=== PATIENT | male | born 1945 | race Caucasian/White ===

== ENCOUNTER → 2017-08-17 07:17 | Outpatient (CLI) | payer OTHER, SELFPAY ==
[2017-08-17 07:45] LABS: Bacteria Urine None Seen; WBC Urine None Seen (0-5/HPF)
[2017-08-17 09:05] LABS: Add Manual Diff / Slide Review NO; Basophils Percent Auto 0.7 % (0-2); Eosinophils Percent Auto 1.1 % (2-4); Hematocrit 41.9 % (41-53); Hemoglobin 14.4 g/dL (13.5-17.5); Lymphocytes Percent Auto 28.1 % (25-40); Mean Corpuscular HGB Conc 34.3 % (30-36); Mean Corpuscular Hemoglobin 31.5 PG (26-34); Mean Corpuscular Volume 91.7 fL (80-100); Monocytes Percent Auto 4.9 % (3-14); Neutrophils Absolute Auto 4900 /uL (3000-5900); Neutrophils Percent Auto 65.2 % (50-75); Platelet Count 156 X10^3/uL (150-400); Red Blood Cell Count 4.57 X10^6/uL (4.5-5.9); Red Cell Distribution Width 12.2 % (11.6-14.8); White Blood Cell Count 7.5 X10^3/uL (4.5-11.0)
[2017-08-17 10:04] LABS: Thyroid Stimulating Hormone 1.37 uIU/mL (0.47-4.68)
[2017-08-17 10:18] LABS: Appearance Urine UA CLEAR; Bilirubin Urine UA NEGATIVE (NEGATIVE); Color Urine UA YELLOW; Glucose Urine UA NEGATIVE (Normal); Ketones Urine UA NEGATIVE (NEGATIVE); Leukocyte Esterase Urine UA NEGATIVE (NEGATIVE); Nitrite Urine UA Negative (Negative); Occult Blood Urine UA 2+ (Negative); Protein Urine UA NEGATIVE (Negative); Specific Gravity Urine UA 1.025 (1.000-1.035); Urobilinogen Urine UA 0.2 E.U./dL (0.2)
[2017-08-17 10:38] LABS: Amorphous Sediment Urine 1+; Culture Indicated Urine Cult Not Indicated; RBC Urine 0-1/HPF (0-5/HPF)
[2017-08-17 11:55] LABS: Alanine Aminotransferase 31 IU/L (21-72); Albumin 4.2 g/dL (3.5-5.0); Alkaline Phosphatase 41 U/L (38-126); Aspartate Aminotransferase 22 IU/L (17-59); Bilirubin Total 2.2 mg/dL (0.2-1.3); Blood Urea Nitrogen 18 mg/dL (9-20); Calcium 9.3 mg/dL (8.4-10.2); Carbon Dioxide 28 mmol/L (22-32); Chloride 103 mmol/L (98-107); Cholesterol 126 mg/dL (140-199); Estimated Glomerular Filt Rate > 60.0 mL/min (>60); Globulin 2.1 g/dL (1.7-4.1); Glucose 103 mg/dL (80-110); HDL Cholesterol 60 mg/dL (40-60); HEMOLYSIS < 15 (0-50); LDL Cholesterol Calculated 46 mg/dL (<100); Sodium 142 mmol/L (137-145); Total Protein 6.3 g/dL (6.3-8.2); Triglycerides 98 mg/dL (35-150)
[2017-08-17 12:27] LABS: Prostate Specific Antigen < 0.064 ng/mL (0.10-4.00)
== END ==
PROVIDERS: Family Provider Family Medicine; PCP Family Medicine; Visit Provider Family Medicine
DX: I10 Essential (primary) hypertension (principal); E78.2 Mixed hyperlipidemia
CPT/HCPCS: 36415; 80053; 80061; 81001; 84153; 84443; 85025

== ENCOUNTER → 2018-02-03 07:43 | Outpatient (CLI) | payer OTHER, SELFPAY ==
[2018-02-03 09:21] LABS: Alanine Aminotransferase 24 IU/L (21-72); Albumin 4.5 g/dL (3.5-5.0); Albumin Globulin Ratio 1.9 (1.0-2.8); Alkaline Phosphatase 42 U/L (38-126); Aspartate Aminotransferase 22 IU/L (17-59); Blood Urea Nitrogen 19 mg/dL (9-20); Calcium 9.4 mg/dL (8.4-10.2); Carbon Dioxide 27 mmol/L (22-32); Chloride 104 mmol/L (98-107); Cholesterol 155 mg/dL (140-199); Estimated Glomerular Filt Rate > 60.0 mL/min (>60); Globulin 2.4 g/dL (1.7-4.1); Glucose 102 mg/dL (80-110); HDL Cholesterol 57 mg/dL (40-60); HEMOLYSIS < 15 (0-50); LDL Cholesterol Calculated 62 mg/dL (<100); Sodium 143 mmol/L (137-145); Total Protein 6.9 g/dL (6.3-8.2); Triglycerides 178 mg/dL (35-150)
== END ==
PROVIDERS: Family Provider Family Medicine; PCP Family Medicine; Visit Provider Family Medicine
DX: E78.5 Hyperlipidemia, unspecified (principal); I10 Essential (primary) hypertension
CPT/HCPCS: 36415; 80053; 80061

== ENCOUNTER → 2018-04-12 10:19 | Outpatient (CLI) | payer OTHER, SELFPAY ==
[2018-04-12 12:14] LABS: Prostate Specific Antigen 0.094 ng/mL (0.10-4.00)
== END ==
PROVIDERS: Family Provider Family Medicine; PCP Family Medicine; Visit Provider Urology
DX: Z85.46 Personal history of malignant neoplasm of prostate (principal)
CPT/HCPCS: 36415; 84153

== ENCOUNTER → 2018-04-21 10:30 | Outpatient (CLI) | payer OTHER, SELFPAY ==
[2018-04-21 11:54] LABS: Add Manual Diff / Slide Review NO; Basophils Absolute Auto 0 /uL (0-100); Basophils Percent Auto 0.5 % (0-2); Eosinophils Absolute Auto 100 /uL (0-450); Eosinophils Percent Auto 0.8 % (2-4); Hematocrit 43.1 % (41-53); Hemoglobin 14.6 g/dL (13.5-17.5); Lymphocytes Absolute Auto 1600 /uL (1100-4500); Lymphocytes Percent Auto 21.8 % (25-40); Mean Corpuscular HGB Conc 33.9 % (30-36); Mean Corpuscular Hemoglobin 31.3 PG (26-34); Mean Corpuscular Volume 92.3 fL (80-100); Monocytes Absolute Auto 400 /uL (0-900); Monocytes Percent Auto 4.9 % (3-14); Neutrophils Absolute Auto 5200 /uL (1500-7000); Platelet Count 180 X10^3/uL (150-400); Red Blood Cell Count 4.67 X10^6/uL (4.5-5.9); Red Cell Distribution Width 12.3 % (11.6-14.8); White Blood Cell Count 7.2 X10^3/uL (4.5-11.0)
[2018-04-21 12:45] LABS: Alanine Aminotransferase 29 IU/L (21-72); Albumin 4.8 g/dL (3.5-5.0); Albumin Globulin Ratio 1.8 (1.0-2.8); Alkaline Phosphatase 46 U/L (38-126); Aspartate Aminotransferase 24 IU/L (17-59); BUN Creatinine Ratio 15.6 (6-22); Bilirubin Total 2.7 mg/dL (0.2-1.3); Blood Urea Nitrogen 14 mg/dL (9-20); Calcium 9.6 mg/dL (8.4-10.2); Carbon Dioxide 24 mmol/L (22-32); Chloride 103 mmol/L (98-107); Estimated Glomerular Filt Rate > 60.0 mL/min (>60); Globulin 2.6 g/dL (1.7-4.1); Glucose 105 mg/dL (80-110); HEMOLYSIS < 15 (0-50); Potassium 4.2 mmol/L (3.4-5.1); Sodium 140 mmol/L (137-145); Total Protein 7.4 g/dL (6.3-8.2)
[2018-04-21 13:51] LABS: Folate 13.5 ng/mL (2.76-20.0); Vitamin B12 389 pg/mL (239-931)
[2018-04-25 22:12] LABS: Albumin 4.4 g/dL (3.8-4.8); Alpha 1 Globulin 0.3 g/dL (0.2-0.3); Alpha 2 Globulin 0.7 g/dL (0.5-0.9); Beta 1 Globulin 0.4 g/dL (0.4-0.6); Gamma Globulin 0.6 g/dL (0.8-1.7); Protein, Total 6.8 g/dL (6.1-8.1)
== END ==
PROVIDERS: Family Provider Family Medicine; PCP Family Medicine; Visit Provider Psychiatry & Neurology Neurology
DX: R25.1 Tremor, unspecified (principal); G63 Polyneuropathy in diseases classified elsewhere; Z51.81 Encounter for therapeutic drug level monitoring
CPT/HCPCS: 36415; 80053; 82607; 82746; 84155; 84165; 84443; 85025

== ENCOUNTER 2018-05-19 11:40 | Outpatient (RCR) | payer OTHER, SELFPAY | END 2018-05-20 12:10 | LOC: PHYS 11:40 | PROVIDERS: Family Provider Family Medicine; PCP Family Medicine; Visit Provider Psychiatry & Neurology Neurology | DX: R27.0 Ataxia, unspecified (principal); G20 Parkinson's disease ==

== ENCOUNTER → 2018-08-18 06:55 | Outpatient (CLI) | payer OTHER, SELFPAY ==
[2018-08-18 07:47] LABS: Add Manual Diff / Slide Review NO; Basophils Absolute Auto 100 /uL (0-100); Basophils Percent Auto 0.8 % (0-2); Eosinophils Absolute Auto 100 /uL (0-450); Eosinophils Percent Auto 1.6 % (2-4); Hematocrit 43.1 % (41-53); Hemoglobin 14.9 g/dL (13.5-17.5); Lymphocytes Absolute Auto 2100 /uL (1100-4500); Lymphocytes Percent Auto 33.4 % (25-40); Mean Corpuscular HGB Conc 34.6 % (30-36); Mean Corpuscular Hemoglobin 31.1 PG (26-34); Mean Corpuscular Volume 89.9 fL (80-100); Monocytes Absolute Auto 300 /uL (0-900); Monocytes Percent Auto 5.1 % (3-14); Neutrophils Absolute Auto 3600 /uL (1500-7000); Neutrophils Percent Auto 59.1 % (50-75); Platelet Count 162 X10^3/uL (150-400); Red Blood Cell Count 4.79 X10^6/uL (4.5-5.9); Red Cell Distribution Width 12.5 % (11.6-14.8); White Blood Cell Count 6.1 X10^3/uL (4.5-11.0)
[2018-08-18 08:30] LABS: Alanine Aminotransferase 14 IU/L (21-72); Albumin 4.4 g/dL (3.5-5.0); Albumin Globulin Ratio 1.8 (1.0-2.8); Alkaline Phosphatase 48 U/L (38-126); Aspartate Aminotransferase 21 IU/L (17-59); Blood Urea Nitrogen 15 mg/dL (9-20); Calcium 9.7 mg/dL (8.4-10.2); Carbon Dioxide 29 mmol/L (22-32); Chloride 104 mmol/L (98-107); Cholesterol 134 mg/dL (140-199); Estimated Glomerular Filt Rate > 60.0 mL/min (>60); Globulin 2.4 g/dL (1.7-4.1); Glucose 100 mg/dL (80-110); HDL Cholesterol 56 mg/dL (40-60); HEMOLYSIS < 15 (0-50); LDL Cholesterol Calculated 56 mg/dL (<100); Potassium 4.9 mmol/L (3.4-5.1); Sodium 141 mmol/L (137-145); Total Protein 6.8 g/dL (6.3-8.2); Triglycerides 110 mg/dL (35-150)
[2018-08-18 09:01] LABS: Prostate Specific Antigen Scrn 0.097 ng/mL (0.1-4.0)
== END ==
PROVIDERS: Family Provider Psychiatry & Neurology Neurology; PCP Family Medicine; Visit Provider Family Medicine
DX: E78.5 Hyperlipidemia, unspecified (principal); I10 Essential (primary) hypertension; Z85.46 Personal history of malignant neoplasm of prostate; Z12.5 Encounter for screening for malignant neoplasm of prostate
CPT/HCPCS: 36415; 80053; 80061; 85025; G0103

== ENCOUNTER → 2018-09-19 07:21 | Outpatient (CLI) | payer OTHER, SELFPAY ==
[2018-09-19 09:27] LABS: HEMOLYSIS < 15 (0-50)
[2018-09-19 09:36] LABS: Alanine Aminotransferase 10 IU/L (21-72); Albumin 4.2 g/dL (3.5-5.0); Albumin Globulin Ratio 1.8 (1.0-2.8); Alkaline Phosphatase 43 U/L (38-126); Aspartate Aminotransferase 20 IU/L (17-59); Bilirubin Total 1.9 mg/dL (0.2-1.3); Blood Urea Nitrogen 15 mg/dL (9-20); Calcium 9.5 mg/dL (8.4-10.2); Carbon Dioxide 31 mmol/L (22-32); Chloride 102 mmol/L (98-107); Cholesterol 141 mg/dL (140-199); Estimated Glomerular Filt Rate > 60.0 mL/min (>60); Globulin 2.4 g/dL (1.7-4.1); Glucose 105 mg/dL (80-110); HDL Cholesterol 59 mg/dL (40-60); LDL Cholesterol Calculated 60 mg/dL (<100); Potassium 4.5 mmol/L (3.4-5.1); Sodium 138 mmol/L (137-145); Total Protein 6.6 g/dL (6.3-8.2); Triglycerides 108 mg/dL (35-150)
[2018-09-19 11:06] LABS: Folate 10.7 ng/mL (2.76-20.0); Vitamin B12 353 pg/mL (239-931)
== END ==
PROVIDERS: Family Provider Psychiatry & Neurology Neurology; PCP Family Medicine; Visit Provider Family Medicine
DX: R68.3 Clubbing of fingers (principal); I10 Essential (primary) hypertension; E78.5 Hyperlipidemia, unspecified
CPT/HCPCS: 36415; 80053; 80061; 82607; 82746

== ENCOUNTER 2018-10-09 10:27 | Emergency (ER) | payer OTHER, SELFPAY ==
[2018-10-09 10:34] VITALS: BP 137/70; PULSE 68; RESP 18; TEMP 36.6; O2SAT 98
[2018-10-09 10:42] VITALS: BP 112/65; BP 129/69; BP 99/61; PULSE 51; PULSE 52; PULSE 60
--- NOTE | 2018-10-09 11:04 | ED_ITS ---
HPI - Head Injury General Chief complaint: Head Injury Stated complaint: hit head Time Seen by Provider: 10/09/18 10:33 Source: patient Mode of arrival: ambulatory Limitations: no limitations History of Present Illness HPI Narrative: 73-year-old male here for evaluation of a fall and a head abrasion that he sustained approximately 48 hours ago. Patient is not on anticoagulation. He does have a history of Parkinson's disease. He has been taking his medications. He stated that on Tuesday he went from a semi reclined position to standing when he stated that he felt lightheaded and then when he started to walk he fell. He was able to stand up on his own. He has an abrasion to his left forehead. He states he came into the emergency department today because he noticed some swelling around the abrasion on his forehead and he was concerned that there may be an infection. Denies headache. Denies vision changes. Denies any new neurologic symptoms. Denies any nausea vomiting. Related Data Home Medications Medication Instructions Recorded Confirmed carbidopa 25 mg-levodopa 100 mg 1 tab PO TID 08/23/18 10/09/18 tablet rasagiline 0.5 mg tablet 0.5 mg PO DAILY 08/23/18 10/09/18 Previous Rx's Medication Instructions Recorded lisinopril 10 mg tablet 10 mg PO QDAY #90 tabs 04/11/18 propranolol 40 mg tablet 40 mg PO QDAY #90 tab 04/11/18 simvastatin 20 mg tablet 20 mg PO HS #90 tab 04/11/18 tamsulosin 0.4 mg capsule 0.4 mg PO QDAY #90 cap 04/11/18 Allergies Allergy/AdvReac Type Severity Reaction Status Date / Time No Known Drug Allergies Allergy Verified 10/09/18 10:38 Review of Systems Constitutional Constitutional: Denies fatigue, Denies fever(s), Denies frequent falls and De nies headache(s) ENT Ears, Nose, Mouth, and Throat: Denies headache(s) Cardiovascular Cardiovascular: Denies chest pain, Denies palpitations and Denies dyspnea Respiratory Respiratory: Denies dyspnea Gastrointestinal Gastrointestinal: Denies abdominal pain, Denies nausea and Denies vomiting Integumentary/Breasts Skin/Breast: Denies rash Comments: Abrasion to the left forehead Neurologic Neurologic: Denies behavioral changes, Denies frequent falls and Denies headache(s) Psychiatric Psychiatric: Denies behavioral changes Endocrine Endocrine: Denies fatigue and Denies palpitations Hematologic/Lymphatic Hematologic/Lymphatic: Denies easy bleeding and Denies easy bruising [facility] Medical History Elevated PSA (Chronic Unknown) Hearing loss (Chronic Unknown) Hyperlipemia (Chronic Unknown) Parkinson's disease (Chronic ~05/2014) Peripheral neuropathy (Chronic ~2011) Prostate cancer (Resolved 06/2010) Family History (Updated 05/07/14 @ 00:00 by Conversion Provider) Sister History of breast cancer Mother No problems noted. Social History Smoking Status: Never smoker second hand exposure: No alcohol intake: current substance use type: marijuana (smoke every couple days) Exam Initial Vital Signs Initial Vital Signs: Vital Signs Temperature 97.8 F 10/09/18 10:34 Pulse Rate 68 10/09/18 10:34 Respiratory Rate 18 10/09/18 10:34 Blood Pressure 137/70 10/09/18 10:34 Pulse Oximetry 98 10/09/18 10:34 Const General: cooperative, comfortable and well developed Orientation: alert, awake and oriented x3 HENMT Head: abrasion Resp Effort & Inspection: normal respiratory effort Cardio Rate: regular rate Rhythm: regular rhythm Skin Lesions: no lesions Rashes: no rashes Neuro General: alert and awake Cognition: normal cognition Speech: speech normal Extrem General: normal to inspection and capillary refill normal Course Vital Signs Vital signs: Vital Signs - 8 hr 10/09/18 10:34 10/09/18 10:42 Temperature 97.8 F Pulse Rate 68 Pulse Rate [Orthostatic Lying] 51 L Pulse Rate [Orthostatic Sitting] 52 L Pulse Rate [Orthostatic Standing] 60 Respiratory Rate 18 Blood Pressure 137/70 Blood Pressure [Orthostatic Lying] 129/69 Blood Pressure [Orthostatic Sitting] 112/65 Blood Pressure [Orthostatic Standing] 99/61 Pulse Oximetry 98 MDM - Head Injury MDM Narrative Medical decision making narrative: Patient has a small abrasion to the left forehead. There is some surrounding swelling however no depressed skull fracture fell. No sutures are needed here in the emergency department. He he is at his baseline neurologic status. We did discuss head CT however is 48 hours out from the event, no symptoms to include headache or vision changes or balance changes or nausea and vomiting is also not on a blood thinner. Will hold on a head CT for now after this discussion with the patient. He is also on lisinopril and propranolol for his blood pressure. He was orthostatic here in the ER. Will have him stop his propanolol for the next couple days intake his blood pressure at home to see if potentially this could be the cause of his falls. He was given return precautions and follow-up instructions. He expressed understanding and agreement with plan. Discharge Plan Departure Patient Disposition: Home Clinical Impression: Abrasion of skin Instructions: DI for Abrasion Activity Restrictions/Additional Instructions: You can shower like normal. You can use soap and water over the abrasion. Continue your Parkinson's medications. Like we discussed stop your propanolol for the next couple days and take your blood pressure at home. Record these values. Tomorrow contact your primary doctor for a follow-up to see if potentially your lightheadedness when you stand up is because your on too much blood pressure medication. Return to the emergency department for any new or worsening symptoms Prescriptions: No Action propranolol 40 mg tablet 40 mg PO QDAY Qty: 90 RF: 1 tamsulosin [Flomax] 0.4 mg capsule 0.4 mg PO QDAY Qty: 90 RF: 1 lisinopril 10 mg tablet 10 mg PO QDAY Qty: 90 RF: 1 simvastatin 20 mg tablet 20 mg PO HS Qty: 90 RF: 1 carbidopa-levodopa [Sinemet] 25-100 mg tablet 1 tab PO TID RF: 0 rasagiline [Azilect] 0.5 mg tablet 0.5 mg PO DAILY RF: 0 Referrals: Dotty Alejo DO [Primary Care Provider] -
[2018-10-09 11:26] VITALS: BP 128/71; PULSE 53; RESP 19; O2SAT 96
[2018-10-09 11:37] VITALS: BP 120/64; PULSE 48; RESP 18; O2SAT 95
== END 2018-10-09 11:38 | disposition home or self-care (01) ==
PROVIDERS: Emergency Provider Emergency Medicine; Family Provider Psychiatry & Neurology Neurology; PCP Family Medicine
DX: S00.01XA Abrasion of scalp, initial encounter (principal); W19.XXXA Unspecified fall, initial encounter
CPT/HCPCS: 99283

== ENCOUNTER → 2018-11-09 06:44 | Outpatient (CLI) | payer OTHER, SELFPAY ==
--- NOTE | 2018-11-09 06:45 | DI.ECHO.S_ITS ---
[facility] +---------+ : : [address] [place] : : : : [id number] : : : : Phone: [phone]+ Echocardiogram Report + + :Name: JEANETH BUCK Study Date: 11/09/2018 Height: 68 in : :[facility] Exam Location: IS Weight: 160 lb : : Gender: Male BSA: 1.9 m2 : :: 1945 Age: 73 yrs BP: 122/62 mmHg: :Reason For Study: HTN, HX OF CVA : : Performed By: Jl Tavera : :Referring: RONEL BRAUN : + + Interpretation Summary The left ventricle is normal in size. There is normal left ventricular wall thickness. There are no focal wall motion abnormalities. The right ventricle is normal in size and function. The atrial septum is aneurysmal. The aortic valve appears to be functionally bicuspid with fusion of the left and noncoronary cusps. No significant aortic stenosis. 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 If clinically suspect that PFO may be relevant to patient's CVA, please obtain a limited echocardiogram with bubble study or consider a transesophageal echocardiogram for further evaluation of the interatrial septum. -There is no prior echocardiogram noted for this patient. Procedure: A two-dimensional transthoracic echocardiogram with color flow and Doppler was performed. The study quality was technically adequate. There is no prior echocardiogram noted for this patient. The patient was in normal sinus rhythm during the exam. Left Ventricle: The left ventricle is normal in size. There is normal left ventricular wall thickness. The LVOT velocity is 1.64 m/s. There is no echo evidence for significant left ventricular outflow tract obstruction. The ejection fraction is estimated to be 60-65%. The left ventricular ejection fraction is normal. There are no focal wall motion abnormalities. Diastolic function could not be accurately assessed due to contradictory data. Right Ventricle: The right ventricle is normal in size and function. Atria: The left atrium is moderately dilated. Right atrial size is normal. The atrial septum is aneurysmal. Mitral Valve: The mitral valve is normal in structure and function. There is trace mitral regurgitation. Aortic Valve: The aortic valve is mildly calcified. The aortic valve appears to be functionally bicuspid with fusion of the left and noncoronary cusps. No significant aortic stenosis. The peak aortic velocity is 2.85 m/sec. The aortic valve mean gradient is 18.5 mmHg. The calculated aortic valve area is 1.9 cm2. There is mild aortic stenosis. There is trace aortic regurgitation. Tricuspid Valve: The tricuspid valve is normal in structure and function. No tricuspid regurgitation. Pulmonary artery pressures cannot be estimated because of the lack of a measurable TR jet velocity. Pulmonic Valve: The pulmonic valve is normal in structure and function. There is no pulmonic valvular regurgitation. Great Vessels: The aortic root is normal size. The ascending aorta is at the upper limits of normal in size. The pulmonary artery is normal size. The IVC is of normal diameter and collapses greater than 50% with a sniff. This suggests a low right atrial pressure of 3 mm Hg. Pericardium/ Pleura There is no pericardial effusion. There is no pleural effusion. MMode/2D Measurements & Calculations LVIDd: 5.0 cm LVOT diam: 2.1 cm LVIDs: 2.5 cm Ao root diam: 3.3 cm FS: 50.3 % Aortic Jxn: 2.4 cm EPSS: 0.28 cm asc Aorta Diam: 3.5 cm IVSd: 0.98 cm LVPWd: 0.87 cm LV alex. diameter/BSA (cm/m^2): 2.7 LV sys. diameter/BSA (cm/m^2): 1.3 LA dimension: 4.3 cm RA long axis: 5.8 cm LA A2 area: 30.6 cm2 RA area: 19.4 cm2 LA A4 area: 24.3 cm2 RA vol: 55.3 ml LA length (vol): 5.8 cm RA : 29.7 ml/m2 LA vol: 109.3 ml IVC diam: 1.6 cm LA vol index: 58.8 ml/m2 Doppler Measurements & Calculations Ao V2 max: 285.4 cm/sec LVOT Max Tamir: 164.3 cm/sec Ao V2 mean: 207.0 cm/sec LV V1 max P.8 mmHg Ao max P.6 mmHg LV V1 VTI: 34.1 cm Ao mean P.5 mmHg RAZA(I,D): 1.9 cm2 Ao V2 VTI: 64.3 cm RAZA(V,D): 2.0 cm2 sev ratio: 0.53 RAZA indexed to BSA (cm^2/m^2): 1.0 MV E max tamir: 76.7 cm/sec PA V2 max: 105.3 cm/sec MV A max tamir: 72.4 cm/sec PA V2 mean: 76.2 cm/sec MV E/A: 1.1 PA mean P.6 mmHg Med Peak E' Tamir: 6.2 cm/sec PA pr(Accel): 29.1 mmHg E/E' med: 12.4 PA Accel Time: 0.11 sec Lat Peak E' Tamir: 7.1 cm/sec E/E' lat: 10.8 E/e' average: 11.6 MV dec time: 0.19 sec [facility] 120.9 ml Electronically signed by: Ed Plasencia M.D. on Reading Physician:11/09/2018 10:06 AM
== END ==
PROVIDERS: Family Provider Psychiatry & Neurology Neurology; PCP Family Medicine; Visit Provider Family Medicine
DX: I35.0 Nonrheumatic aortic (valve) stenosis (principal); I10 Essential (primary) hypertension; Z86.73 Personal history of transient ischemic attack (TIA), and cerebral infarction without residual deficits
CPT/HCPCS: C8929

== ENCOUNTER → 2019-08-24 14:12 | Outpatient (CLI) | payer OTHER, SELFPAY ==
[2019-08-24 15:15] LABS: BUN Creatinine Ratio 19.8 (6-22); Blood Urea Nitrogen 18 mg/dL (9-20); Calcium 9.4 mg/dL (8.4-10.2); Carbon Dioxide 29 mmol/L (22-32); Chloride 104 mmol/L (98-107); Estimated Glomerular Filt Rate > 60.0 mL/min (>60); Glucose 86 mg/dL (80-110); HEMOLYSIS < 15 (0-50); Potassium 4.3 mmol/L (3.4-5.1); Sodium 139 mmol/L (137-145)
== END ==
PROVIDERS: Family Provider Psychiatry & Neurology Neurology; PCP Student in an Organized Health Care Education/Training Program; Referring Provider Student in an Organized Health Care Education/Training Program; Visit Provider Student in an Organized Health Care Education/Training Program
DX: I10 Essential (primary) hypertension (principal)
CPT/HCPCS: 36415; 80048

== ENCOUNTER → 2020-03-05 08:39 | Outpatient (CLI) | payer OTHER, SELFPAY ==
[2020-03-05 09:52] LABS: Add Manual Diff / Slide Review NO; Basophils Absolute Auto 0 /uL (0-100); Basophils Percent Auto 0.4 % (0-2); Eosinophils Absolute Auto 0 /uL (0-450); Eosinophils Percent Auto 0.4 % (2-4); Hematocrit 41.3 % (41-53); Hemoglobin 13.7 g/dL (13.5-17.5); Lymphocytes Absolute Auto 1200 /uL (1100-4500); Lymphocytes Percent Auto 15.5 % (25-40); Mean Corpuscular HGB Conc 33.1 % (30-36); Mean Corpuscular Hemoglobin 30.7 PG (26-34); Mean Corpuscular Volume 92.6 fL (80-100); Monocytes Absolute Auto 300 /uL (0-900); Monocytes Percent Auto 4.2 % (3-14); Neutrophils Absolute Auto 6400 /uL (1500-7000); Neutrophils Percent Auto 79.5 % (50-75); Platelet Count 167 X10^3/uL (150-400); Red Blood Cell Count 4.46 X10^6/uL (4.5-5.9); Red Cell Distribution Width 12.7 % (11.6-14.8)
[2020-03-05 10:12] LABS: Alanine Aminotransferase 4 IU/L (<50); Albumin 4.3 g/dL (3.5-5.0); Albumin Globulin Ratio 1.8 (1.0-2.8); Alkaline Phosphatase 44 U/L (38-126); Aspartate Aminotransferase 18 IU/L (17-59); BUN Creatinine Ratio 15.5 (6-22); Bilirubin Total 2.5 mg/dL (0.2-1.3); Blood Urea Nitrogen 15 mg/dL (9-20); Calcium 9.2 mg/dL (8.4-10.2); Carbon Dioxide 29 mmol/L (22-32); Chloride 104 mmol/L (98-107); Estimated Glomerular Filt Rate > 60.0 mL/min (>60); Globulin 2.4 g/dL (1.7-4.1); Glucose 117 mg/dL (80-110); HEMOLYSIS < 15 (0-50); Potassium 4.3 mmol/L (3.4-5.1); Sodium 138 mmol/L (137-145); Total Protein 6.7 g/dL (6.3-8.2)
[2020-03-14 12:38] LABS: 1,25-Dihydroxy, Vitamin D-2 <10 pg/mL (.)
== END ==
PROVIDERS: Family Provider Psychiatry & Neurology Neurology; PCP Student in an Organized Health Care Education/Training Program; Referring Provider Psychiatry & Neurology Neurology; Visit Provider Psychiatry & Neurology Neurology
DX: Z51.81 Encounter for therapeutic drug level monitoring (principal); E55.9 Vitamin D deficiency, unspecified
CPT/HCPCS: 36415; 80053; 82652; 85025

== ENCOUNTER 2020-04-17 09:45 | Outpatient (RCR) | payer OTHER, SELFPAY ==
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
--- NOTE | 2020-03-05 15:48 | PT.OPPOC ---
Physical, Occupational & Speech Therapy At [facility] Current Diagnoses Parkinson's disease (03/05/20) Pain in right shoulder (03/05/20) Visit Care Team Role Provider Type Nemesio Louis MD Family Provider Non-Staff Specialty: Neurology Address: [address] , [place], [address] Email: Moo Li MD Attending Provider Physician Primary Care Provider Referring Provider Specialty: Internal Medicine Address: [address] [place] [address], [address], [place], [address] Email: [email or web address] Plan Of Care PT-OP-T Assessment and Plan Start: 03/04/20 13:34 Freq: Status: Active Protocol: Document 03/05/20 13:00 MB (Rec: 03/05/20 14:19 MB [id number]) Physical Therapy Assessment Rehab Potential Rehabilitation Potential Fair Evaluation Complexity Number of Personal Factors/Comorbidities 1-2 Number of Body Systems Impaired 1-2 Clinical Presentation at Evaluation Evolving Impairments Impairments Pain,Posture,Soft Tissue Mobility,Strength Other Concerns Fall Risk Yes, history of PD and reports of dizziness getting up Goals 3 Mcc Goal (LTG) Pt will present with improved right shoulder flexion, abduction, ER and IR strength to at least 4/5 to improve functional use of arm by . LTG Duration 8 weeks 2 Management Lead Goal (LTG) Pt will perform progressive HEP with I including self- myofascial, thoracic flexibility, postural and strengthening exercises to decrease pain and improve strength by 05/05/20. LTG Duration 8 weeks 1 Mcc Goal (LTG) Pt will present with improved QuickDASH score to reflect no more than 15% impairment to reflect decreased pain and to prepare pt to get back to swimming by 05/05/20. LTG Duration 8 weeks Assessment Summary Assessment Pt is a 74 y/o male presenting with right shoulder pain s/p swimming injury and history of PD affecting right UE and including tremor of right UE and LE tremor per PT observation today. Pt presents with bulge in his right biceps area and describes feeling a tear when he went to pull through performing butterfly stroke. 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 PT testing reveals normal AROM and PROM right shoulder, right shoulder pain at the long head of the biceps, positive pain with resisted right shoulder ER with elbow at side and thumb up and painful and weak MMT including shoulder abduction. PT favors bicipital tear and possible other rotator or labral injury . He has postural changes and stiffness in thoracic spine. Pt has a difficult time communicating expectations for PT and when PT asks him about it, he states that PT is the last thing that he is going to try and does not think that it will be helpful. PT asks further questions and pt states that he would like for PT to figure out what is wrong and communicate with referring doctor. It is not clear if he is receptive to PT education about PT assessment findings, plan and need to initiate PT regularly (2x/wk would be optimal for shoulder injury with likely tear or at least 1x/wk for many weeks). His co-pay is high and PT recommends set-up 1x/wk for 5 weeks. Pt only sets up 3 appointments upon leaving the clinic. He would like for PT to get his shoulder better as efficiently as possible. While this PT is in agreement, PT will likely need more visits to significantly improve his right shoulder. PT plan conflicting with pt expectations is a barrier to PT. Pt will benefit from PT for manual work, postural and strengthening work, thoracic mobility. Physical Therapy Plan Frequency and Duration Frequency of Treatment 1x/Week Duration of Treatment 8 weeks Plan of Care Start Date 03/05/20 Plan of Care End Date 05/05/20 Therapeutic Interventions Therapeutic Interventions Canalithic Repositioning, Coordination Training,Home Exercise Program,Joint Mobilizations,Manual Therapy, Neuromuscular Re-education, Patient/Caregiver Education, Self-Care/Home Management,Soft Tissue Mobilization,Taping, Therapeutic Activities, Therapeutic Exercises Modalities Cold Pack/Ice Massage,Electric Stimulation,Hot Packs, Ultrasound Next Visit Focus/Plan Next Note Type Treatment Note Next Visit Plan Initiate racquet ball massage, self-massage with MWM for right biceps, thoracic mobility, manual work Plan of Care Dates Plan of Care Start Date 03/05/20 Plan of Care End Date 05/05/20 Electronically Signed by: Mara Palma, PT 03/05/20 1030 Please Sign and Return: I have reviewed this Plan of Care and certify that the skilled therapy services above are required to meet the patient?s needs. Physician Signature Date Printed Name and Credentials Clinical Instructor Signature Printed Name and Credentials
--- NOTE | 2020-03-12 15:22 | PT.OTN ---
Current Diagnoses Parkinson's disease (03/12/20) Pain in right shoulder (03/12/20) Physical Therapy Treatment Note PT-OP-A Visit Information Start: 03/04/20 13:34 Freq: Status: Active Protocol: Document 03/12/20 14:32 MB (Rec: 03/12/20 14:48 MB [id number]) Out-Patient Physical Therapy Visit Information Visit Information Visit Type Treatment Note Visit Note [facility], copay $40 Visit Start Time 14:32 Visit Stop Time 15:15 Total Visit Minutes 43 Visit Number 03/24 PT-OP-B Current Condition Start: 03/04/20 13:34 Freq: Status: Active Protocol: Document 03/05/20 13:00 MB (Rec: 03/05/20 13:48 MB [id number]) Current Condition History of Current Condition Onset Date December or January 2020 Current Complaints Right shoulder pain History of Current Condition 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 He has pain in his right proximal anterior arm. Pt is right handed. Pt has PD and a tremor. He thinks that his right shoulder is weaker from the tremor. He is [place], has history of skin CA and prostate CA. 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 Pt reports 4/10 pain. He has trouble lifting his arm. Pt is not very descriptive about his symptoms. He lives alone. He had a remote right shoulder injury when falling off a bike and landing on his hands. Pt walker history of hernia. Pt reports the following problems with PD: sleeping, appetite, nervousness and tremor. He is unsure if he has walking problems. He sees Dr. Louis for PD. He is taking Carbidopa Levadopa TID for PD. Pt has a history of dizziness when getting up and he denies falls. Prior Treatments and Tests No PT in the past Treatment Goals Patient/Caregiver Goals Pt would like to know if his right shoulder will improve with therapy. He does not think that it will help. PT-OP-C Subjective Start: 03/04/20 13:34 Freq: Status: Active Protocol: Document 03/12/20 14:32 MB (Rec: 03/12/20 14:48 MB [id number]) OP-PT Subjective Patient Comments Patient Comments I'm just curious to see what you think. Pt reports that he did get 3-4 appointments scheduled does not currently want to schedule more appointments. Pt states that his right shoulder might be getting a little better. He states that his sleeping schedule has been off and that he has been sleeping during the day. PT-OP-G Mobility & Gait Start: 03/04/20 13:34 Freq: Status: Active Protocol: Document 03/05/20 13:00 MB (Rec: 03/05/20 14:30 MB [id number]) OP Gait Assessment Gait Gait Assistance Required: Independent Distance (Feet) 50 Able to Maintain Weight Bearing Status Yes During Gait Assistive Devices Assistive Device None Gait Deviations General Gait Pattern Within Normal Limits Factors Limiting Gait Function Factors Limiting Gait Function Limited Range of Motion Comments Gait Comments Pt's gait is quick. His right scapula, shoulder and arm do not move much with gait and his right scapular area is in general rigid. Pt has right arm tremor and he tends to put his right hand in his pocket or behind him during assessment. PT-OP-J Posture/Palpation/Skin Start: 03/04/20 13:34 Freq: Status: Active Protocol: Document 03/05/20 13:00 MB (Rec: 03/05/20 14:30 MB [id number]) Posture Evaluation Comments Posture Comments Standing posture: forward head with left tragus 3.5 in front of AC joint, rounded shoulders, Dowager's hump, decreased thoracic kyphosis and pt with forward trunk over pelvis, left shoulder is higher than the right, right clavicle is more prominent in appearance than the left (he denies AC joint popping or history of clavicular injury), xiphoid process protrudes, linea alba/midline curves with convexity to the left, right iliac crest is higher than the right, noticeable lump distal right biceps area. PT-OP-K Range of Motion Start: 03/04/20 13:34 Freq: Status: Active Protocol: Document 03/05/20 13:00 MB (Rec: 03/05/20 14:30 MB [id number]) Shoulder Goniometric Range of Motion Shoulder Right Shoulder ROM WFL No Testing Position Standing Flexion 175 Abduction 175 Internal Rotation Behind Back (text) Thumb at T8 Comments Right active shoulder ROM is very functional for pt age but it is not equal to the left, which is hypermobile. He has only mild discomfort with lowering his arm in latissimus area near lateral scapular border and across proximal arm near the middle of the deltoid. His right arm is his dominant side, also the side affected by his PD, per pt report. PROM ER and IR in supine with shoulder at 90/90 is normal. Left Shoulder ROM WFL Yes Testing Position Standing Flexion 180 Abduction 180 Internal Rotation Behind Back (text) Thumb at T6 Comments Pt's left shoulder is hypermobile and may go beyond 180. PROM left shoulder ER and IR in supine with shoulder at 90/90 normal. PT-OP-M Strength Start: 03/04/20 13:34 Freq: Status: Active Protocol: Document 03/05/20 13:00 MB (Rec: 03/05/20 15:32 MB [id number]) Shoulder Strength Shoulder Manual Muscle Testing Right Flexion 3+ Fair+ Abduction (C5) 3 Fair External Rotation 3+ Fair+ Internal Rotation 3+ Fair+ Comments Pt reports most discomfort with abduction and pain is localize around proximal arm around the deltoid area. Elbow/Forearm Strength Elbow and Forearm Manual Muscle Testing Left Flexion (C6) 5 Normal Extension (C7) 5 Normal Pronation 5 Normal Supination 5 Normal Right Flexion (C6) 4 Good Extension (C7) 5 Normal Pronation 5 Normal Supination 5 Normal Wrist Strength Wrist Manual Muscle Testing Left Flexion (C7) 5 Normal Extension (C6) 5 Normal Right Flexion (C7) 5 Normal Extension (C6) 5 Normal PT-OP-Q Treatments Start: 03/04/20 13:34 Freq: Status: Active Protocol: Document 03/12/20 14:32 MB (Rec: 03/12/20 15:18 MB [id number]) Therapeutic Exercises Supine Exercises Pect stretch Comments B, towel roll support at neck and head on pillow, use left hand to lower ri Manual Therapy Treatment Other Other Manual Treatments Pt prone: PA mobs thoracic spine and ribs grade III-IV and pt performing assisted breathing, MWM right subscapularis, infraspinatus and biceps and triceps with pt performing active shoulder movement and PT providing TrP pressure. Pt presents with crackling sound near right AC joint with movement. Pt supine : MWM right biceps with PT providing TrP pressure and pt performing active elbow flexion and extension, pect positional release on the right PT-OP-T Assessment and Plan Start: 03/04/20 13:34 Freq: Status: Active Protocol: Document 03/12/20 14:32 MB (Rec: 03/12/20 14:48 MB [id number]) Physical Therapy Assessment Rehab Potential Rehabilitation Potential Fair Evaluation Complexity Number of Personal Factors/Comorbidities 1-2 Number of Body Systems Impaired 1-2 Clinical Presentation at Evaluation Evolving Impairments Impairments Pain,Posture,Soft Tissue Mobility,Strength Other Concerns Fall Risk Yes, history of PD and reports of dizziness getting up Goals 3 Prison Goal (LTG) Pt will present with improved right shoulder flexion, abduction, ER and IR strength to at least 4/5 to improve functional use of arm by . LTG Duration 8 weeks 2 Prison Goal (LTG) Pt will perform progressive HEP with I including self- myofascial, thoracic flexibility, postural and strengthening exercises to decrease pain and improve strength by 05/05/20. LTG Duration 8 weeks 1 Prison Goal (LTG) Pt will present with improved QuickDASH score to reflect no more than 15% impairment to reflect decreased pain and to prepare pt to get back to swimming by 05/05/20. LTG Duration 8 weeks Assessment Summary Assessment Pt con't to be hypoverbal and it is unclear what his expectations are for PT. Initiated manual work today. He has some crunching around right AC joint with AROM ER and IR with MWM. Initiated pect stretching. Consider Counterstrain next treatment date and then progress exercises. Physical Therapy Plan Frequency and Duration Frequency of Treatment 1x/Week Duration of Treatment 8 weeks Plan of Care Start Date 03/05/20 Plan of Care End Date 05/05/20 Therapeutic Interventions Therapeutic Interventions Canalithic Repositioning, Coordination Training,Home Exercise Program,Joint Mobilizations,Manual Therapy, Neuromuscular Re-education, Patient/Caregiver Education, Self-Care/Home Management,Soft Tissue Mobilization,Taping, Therapeutic Activities, Therapeutic Exercises Modalities Cold Pack/Ice Massage,Electric Stimulation,Hot Packs, Ultrasound Next Visit Focus/Plan Next Note Type Treatment Note Next Visit Plan Counterstrain, Self-massage with MWM for right biceps, thoracic mobility, manual work
--- NOTE | 2020-03-20 13:52 | PT.OTN ---
Current Diagnoses Parkinson's disease (03/20/20) Pain in right shoulder (03/20/20) Physical Therapy Treatment Note PT-OP-A Visit Information Start: 03/04/20 13:34 Freq: Status: Active Protocol: Document 03/20/20 13:02 MB (Rec: 03/20/20 13:50 MB [id number]) Out-Patient Physical Therapy Visit Information Visit Information Visit Type Treatment Note Visit Note [facility], copay $40 Visit Start Time 13:02 Visit Stop Time 13:45 Total Visit Minutes 43 Visit Number 3 PT-OP-B Current Condition Start: 03/04/20 13:34 Freq: Status: Active Protocol: Document 03/05/20 13:00 MB (Rec: 03/05/20 13:48 MB [id number]) Current Condition History of Current Condition Onset Date December or January 2020 Current Complaints Right shoulder pain History of Current Condition 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 He has pain in his right proximal anterior arm. Pt is right handed. Pt has PD and a tremor. He thinks that his right shoulder is weaker from the tremor. [place] has history of skin CA and prostate CA. 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 Pt reports 4/10 pain. He has trouble lifting his arm. Pt is not very descriptive about his symptoms. He lives alone. He had a remote right shoulder injury when falling off a bike and landing on his hands. Pt walker history of hernia. Pt reports the following problems with PD: sleeping, appetite, nervousness and tremor. He is unsure if he has walking problems. He sees Dr. Louis for PD. He is taking Carbidopa Levadopa TID for PD. Pt has a history of dizziness when getting up and he denies falls. Prior Treatments and Tests No PT in the past Treatment Goals Patient/Caregiver Goals Pt would like to know if his right shoulder will improve with therapy. He does not think that it will help. PT-OP-C Subjective Start: 03/04/20 13:34 Freq: Status: Active Protocol: Document 03/20/20 13:02 MB (Rec: 03/20/20 13:50 MB [id number]) OP-PT Subjective Patient Comments Patient Comments It's hard to tell. When PT asks pt how he is doing PT-OP-G Mobility & Gait Start: 03/04/20 13:34 Freq: Status: Active Protocol: Document 03/05/20 13:00 MB (Rec: 03/05/20 14:30 MB [id number]) OP Gait Assessment Gait Gait Assistance Required: Independent Distance (Feet) 50 Able to Maintain Weight Bearing Status Yes During Gait Assistive Devices Assistive Device None Gait Deviations General Gait Pattern Within Normal Limits Factors Limiting Gait Function Factors Limiting Gait Function Limited Range of Motion Comments Gait Comments Pt's gait is quick. His right scapula, shoulder and arm do not move much with gait and his right scapular area is in general rigid. Pt has right arm tremor and he tends to put his right hand in his pocket or behind him during assessment. PT-OP-J Posture/Palpation/Skin Start: 03/04/20 13:34 Freq: Status: Active Protocol: Document 03/05/20 13:00 MB (Rec: 03/05/20 14:30 MB [id number]) Posture Evaluation Comments Posture Comments Standing posture: forward head with left tragus 3.5 in front of AC joint, rounded shoulders, Dowager's hump, decreased thoracic kyphosis and pt with forward trunk over pelvis, left shoulder is higher than the right, right clavicle is more prominent in appearance than the left (he denies AC joint popping or history of clavicular injury), xiphoid process protrudes, linea alba/midline curves with convexity to the left, right iliac crest is higher than the right, noticeable lump distal right biceps area. PT-OP-K Range of Motion Start: 03/04/20 13:34 Freq: Status: Active Protocol: Document 03/05/20 13:00 MB (Rec: 03/05/20 14:30 MB [id number]) Shoulder Goniometric Range of Motion Shoulder Right Shoulder ROM WFL No Testing Position Standing Flexion 175 Abduction 175 Internal Rotation Behind Back (text) Thumb at T8 Comments Right active shoulder ROM is very functional for pt age but it is not equal to the left, which is hypermobile. He has only mild discomfort with lowering his arm in latissimus area near lateral scapular border and across proximal arm near the middle of the deltoid. His right arm is his dominant side, also the side affected by his PD, per pt report. PROM ER and IR in supine with shoulder at 90/90 is normal. Left Shoulder ROM WFL Yes Testing Position Standing Flexion 180 Abduction 180 Internal Rotation Behind Back (text) Thumb at T6 Comments Pt's left shoulder is hypermobile and may go beyond 180. PROM left shoulder ER and IR in supine with shoulder at 90/90 normal. PT-OP-M Strength Start: 03/04/20 13:34 Freq: Status: Active Protocol: Document 03/05/20 13:00 MB (Rec: 03/05/20 15:32 MB [id number]) Shoulder Strength Shoulder Manual Muscle Testing Right Flexion 3+ Fair+ Abduction (C5) 3 Fair External Rotation 3+ Fair+ Internal Rotation 3+ Fair+ Comments Pt reports most discomfort with abduction and pain is localize around proximal arm around the deltoid area. Elbow/Forearm Strength Elbow and Forearm Manual Muscle Testing Left Flexion (C6) 5 Normal Extension (C7) 5 Normal Pronation 5 Normal Supination 5 Normal Right Flexion (C6) 4 Good Extension (C7) 5 Normal Pronation 5 Normal Supination 5 Normal Wrist Strength Wrist Manual Muscle Testing Left Flexion (C7) 5 Normal Extension (C6) 5 Normal Right Flexion (C7) 5 Normal Extension (C6) 5 Normal PT-OP-Q Treatments Start: 03/04/20 13:34 Freq: Status: Active Protocol: Document 03/20/20 13:02 MB (Rec: 03/20/20 13:50 MB [id number]) Therapeutic Exercises Standing Exercises Deltoid STM with racquet ball Comments TrP pressure with ball MWM upper traps Comments TrP pressure with racquet ball and active cervical rotation Intrascapular STM Comments Use of racquet ball in sock, right shoulder MWM infraspinatus Comments Right, pt uses racquet ball in sock Manual Therapy Treatment Other Other Manual Treatments Pt prone: PA mobs thoracic spine and ribs grade III-IV and pt with assisted breathing , MWM right biceps with pt performing active elbow flexion and extension. Also worked on tricpes in similar manner. PT-OP-T Assessment and Plan Start: 03/04/20 13:34 Freq: Status: Active Protocol: Document 03/20/20 13:02 MB (Rec: 03/20/20 13:50 MB [id number]) Physical Therapy Assessment Rehab Potential Rehabilitation Potential Fair Evaluation Complexity Number of Personal Factors/Comorbidities 1-2 Number of Body Systems Impaired 1-2 Clinical Presentation at Evaluation Evolving Impairments Impairments Pain,Posture,Soft Tissue Mobility,Strength Other Concerns Fall Risk Yes, history of PD and reports of dizziness getting up Goals 3 Textile Screen Printer Goal (LTG) Pt will present with improved right shoulder flexion, abduction, ER and IR strength to at least 4/5 to improve functional use of arm by . LTG Duration 8 weeks 2 [employer]inter Goal (LTG) Pt will perform progressive HEP with I including self- myofascial, thoracic flexibility, postural and strengthening exercises to decrease pain and improve strength by 05/05/20. 03/20/20: Pt is performing pect stretch and racquet ball STM LTG Duration 8 weeks 1 [employer]inter Goal (LTG) Pt will present with improved QuickDASH score to reflect no more than 15% impairment to reflect decreased pain and to prepare pt to get back to swimming by 05/05/20. LTG Duration 8 weeks Assessment Summary Assessment Pt presents with B latissimus, right biceps and triceps tension today and treatment today with manual work and it improves with work. Pt con't to report that he wonders what PT is accomplishing. Con't to progress thoracic mobility and strengthening. Physical Therapy Plan Frequency and Duration Frequency of Treatment 1x/Week Duration of Treatment 8 weeks Plan of Care Start Date 03/05/20 Plan of Care End Date 05/05/20 Therapeutic Interventions Therapeutic Interventions Canalithic Repositioning, Coordination Training,Home Exercise Program,Joint Mobilizations,Manual Therapy, Neuromuscular Re-education, Patient/Caregiver Education, Self-Care/Home Management,Soft Tissue Mobilization,Taping, Therapeutic Activities, Therapeutic Exercises Modalities Cold Pack/Ice Massage,Electric Stimulation,Hot Packs, Ultrasound Next Visit Focus/Plan Next Note Type Treatment Note Next Visit Plan Consider Counterstrain and self biceps work, thoracic mobility, manual work
--- NOTE | 2020-04-03 09:48 | PT.OTN ---
Current Diagnoses Parkinson's disease (04/03/20) Pain in right shoulder (04/03/20) Physical Therapy Treatment Note PT-OP-A Visit Information Start: 03/04/20 13:34 Freq: Status: Active Protocol: Document 04/03/20 09:02 MB (Rec: 04/03/20 09:35 MB [id number]) Out-Patient Physical Therapy Visit Information Visit Information Visit Type Treatment Note Visit Note [facility], copay $40 Visit Start Time 09:02 Visit Stop Time 09:45 Total Visit Minutes 43 Visit Number [id number] PT-OP-B Current Condition Start: 03/04/20 13:34 Freq: Status: Active Protocol: Document 03/05/20 13:00 MB (Rec: 03/05/20 13:48 MB [id number]) Current Condition History of Current Condition Onset Date December or January 2020 Current Complaints Right shoulder pain History of Current Condition 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 He has pain in his right proximal anterior arm. Pt is right handed. Pt has PD and a tremor. He thinks that his right shoulder is weaker from the tremor. He is [place], has history of skin CA and prostate CA. 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 Pt reports 4/10 pain. He has trouble lifting his arm. Pt is not very descriptive about his symptoms. He lives alone. He had a remote right shoulder injury when falling off a bike and landing on his hands. Pt walker history of hernia. Pt reports the following problems with PD: sleeping, appetite, nervousness and tremor. He is unsure if he has walking problems. He sees Dr. Louis for PD. He is taking Carbidopa Levadopa TID for PD. Pt has a history of dizziness when getting up and he denies falls. Prior Treatments and Tests No PT in the past Treatment Goals Patient/Caregiver Goals Pt would like to know if his right shoulder will improve with therapy. He does not think that it will help. PT-OP-C Subjective Start: 03/04/20 13:34 Freq: Status: Active Protocol: Document 04/03/20 09:02 MB (Rec: 04/03/20 09:35 MB [id number]) OP-PT Subjective Patient Comments Patient Comments Maybe it's healing a little slowly. I'm thinking I'm going to lay off the appointments right now and do it on my own. PT-OP-G Mobility & Gait Start: 03/04/20 13:34 Freq: Status: Active Protocol: Document 03/05/20 13:00 MB (Rec: 03/05/20 14:30 MB [id number]) OP Gait Assessment Gait Gait Assistance Required: Independent Distance (Feet) 50 Able to Maintain Weight Bearing Status Yes During Gait Assistive Devices Assistive Device None Gait Deviations General Gait Pattern Within Normal Limits Factors Limiting Gait Function Factors Limiting Gait Function Limited Range of Motion Comments Gait Comments Pt's gait is quick. His right scapula, shoulder and arm do not move much with gait and his right scapular area is in general rigid. Pt has right arm tremor and he tends to put his right hand in his pocket or behind him during assessment. PT-OP-J Posture/Palpation/Skin Start: 03/04/20 13:34 Freq: Status: Active Protocol: Document 03/05/20 13:00 MB (Rec: 03/05/20 14:30 MB [id number]) Posture Evaluation Comments Posture Comments Standing posture: forward head with left tragus 3.5 in front of AC joint, rounded shoulders, Dowager's hump, decreased thoracic kyphosis and pt with forward trunk over pelvis, left shoulder is higher than the right, right clavicle is more prominent in appearance than the left (he denies AC joint popping or history of clavicular injury), xiphoid process protrudes, linea alba/midline curves with convexity to the left, right iliac crest is higher than the right, noticeable lump distal right biceps area. PT-OP-K Range of Motion Start: 03/04/20 13:34 Freq: Status: Active Protocol: Document 03/05/20 13:00 MB (Rec: 03/05/20 14:30 MB [id number]) Shoulder Goniometric Range of Motion Shoulder Right Shoulder ROM WFL No Testing Position Standing Flexion 175 Abduction 175 Internal Rotation Behind Back (text) Thumb at T8 Comments Right active shoulder ROM is very functional for pt age but it is not equal to the left, which is hypermobile. He has only mild discomfort with lowering his arm in latissimus area near lateral scapular border and across proximal arm near the middle of the deltoid. His right arm is his dominant side, also the side affected by his PD, per pt report. PROM ER and IR in supine with shoulder at 90/90 is normal. Left Shoulder ROM WFL Yes Testing Position Standing Flexion 180 Abduction 180 Internal Rotation Behind Back (text) Thumb at T6 Comments Pt's left shoulder is hypermobile and may go beyond 180. PROM left shoulder ER and IR in supine with shoulder at 90/90 normal. PT-OP-M Strength Start: 03/04/20 13:34 Freq: Status: Active Protocol: Document 03/05/20 13:00 MB (Rec: 03/05/20 15:32 MB [id number]) Shoulder Strength Shoulder Manual Muscle Testing Right Flexion 3+ Fair+ Abduction (C5) 3 Fair External Rotation 3+ Fair+ Internal Rotation 3+ Fair+ Comments Pt reports most discomfort with abduction and pain is localize around proximal arm around the deltoid area. Elbow/Forearm Strength Elbow and Forearm Manual Muscle Testing Left Flexion (C6) 5 Normal Extension (C7) 5 Normal Pronation 5 Normal Supination 5 Normal Right Flexion (C6) 4 Good Extension (C7) 5 Normal Pronation 5 Normal Supination 5 Normal Wrist Strength Wrist Manual Muscle Testing Left Flexion (C7) 5 Normal Extension (C6) 5 Normal Right Flexion (C7) 5 Normal Extension (C6) 5 Normal PT-OP-Q Treatments Start: 03/04/20 13:34 Freq: Status: Active Protocol: Document 04/03/20 09:02 MB (Rec: 04/03/20 09:35 MB [id number]) Therapeutic Exercises Standing Exercises Row, ER, triceps strengthening Side bilateral Comments Lots of practice, level 2 band left and level 1 band right for ER, 10 reps Deltoid STM with racquet ball Comments TrP pressure with ball Manual Therapy Treatment Other Other Manual Treatments Pt prone: MWM right biceps and deltoid, subscap and pect, pt performing active shoulder ER and IR, elbow flexion and extension, and PT perform TrP pressure PT-OP-T Assessment and Plan Start: 03/04/20 13:34 Freq: Status: Active Protocol: Document 04/03/20 09:02 MB (Rec: 04/03/20 09:35 MB [id number]) Physical Therapy Assessment Rehab Potential Rehabilitation Potential Fair Evaluation Complexity Number of Personal Factors/Comorbidities 1-2 Number of Body Systems Impaired 1-2 Clinical Presentation at Evaluation Evolving Impairments Impairments Pain,Posture,Soft Tissue Mobility,Strength Other Concerns Fall Risk Yes, history of PD and reports of dizziness getting up Goals 3 Shelter Goal (LTG) Pt will present with improved right shoulder flexion, abduction, ER and IR strength to at least 4/5 to improve functional use of arm by . LTG Duration 8 weeks 2 Leaf Conditioner Helper Goal (LTG) Pt will perform progressive HEP with I including self- myofascial, thoracic flexibility, postural and strengthening exercises to decrease pain and improve strength by 05/05/20. 03/20/20: Pt is performing pect stretch and racquet ball STM LTG Duration 8 weeks 1 Shelter Goal (LTG) Pt will present with improved QuickDASH score to reflect no more than 15% impairment to reflect decreased pain and to prepare pt to get back to swimming by 05/05/20. LTG Duration 8 weeks Assessment Summary Assessment Progressed strengthening exercises today with band and pt has some trouble understanding them, much review and provided handouts. Unsure how many more appointments pt will attend. Physical Therapy Plan Frequency and Duration Frequency of Treatment 1x/Week Duration of Treatment 8 weeks Plan of Care Start Date 03/05/20 Plan of Care End Date 05/05/20 Therapeutic Interventions Therapeutic Interventions Canalithic Repositioning, Coordination Training,Home Exercise Program,Joint Mobilizations,Manual Therapy, Neuromuscular Re-education, Patient/Caregiver Education, Self-Care/Home Management,Soft Tissue Mobilization,Taping, Therapeutic Activities, Therapeutic Exercises Modalities Cold Pack/Ice Massage,Electric Stimulation,Hot Packs, Ultrasound Next Visit Focus/Plan Next Note Type Treatment Note Next Visit Plan Consider Counterstrain and thoracic mobility
--- NOTE | 2020-04-17 10:30 | PT.OTN ---
Current Diagnoses Parkinson's disease (04/17/20) Pain in right shoulder (04/17/20) Physical Therapy Treatment Note PT-OP-A Visit Information Start: 03/04/20 13:34 Freq: Status: Active Protocol: Document 04/17/20 09:48 MB (Rec: 04/17/20 10:24 MB [id number]) Out-Patient Physical Therapy Visit Information Visit Information Visit Type Treatment Note Visit Note [facility], copay $40 Visit Start Time 09:48 Visit Stop Time 10:30 Total Visit Minutes 42 Visit Number 06/21 PT-OP-B Current Condition Start: 03/04/20 13:34 Freq: Status: Active Protocol: Document 03/05/20 13:00 MB (Rec: 03/05/20 13:48 MB [id number]) Current Condition History of Current Condition Onset Date December or January 2020 Current Complaints Right shoulder pain History of Current Condition 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 He has pain in his right proximal anterior arm. Pt is right handed. Pt has PD and a tremor. He thinks that his right shoulder is weaker from the tremor. He is [place], has history of skin CA and prostate CA. 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 Pt reports 4/10 pain. He has trouble lifting his arm. Pt is not very descriptive about his symptoms. He lives alone. He had a remote right shoulder injury when falling off a bike and landing on his hands. Pt walker history of hernia. Pt reports the following problems with PD: sleeping, appetite, nervousness and tremor. He is unsure if he has walking problems. He sees Dr. Louis for PD. He is taking Carbidopa Levadopa TID for PD. Pt has a history of dizziness when getting up and he denies falls. Prior Treatments and Tests No PT in the past Treatment Goals Patient/Caregiver Goals Pt would like to know if his right shoulder will improve with therapy. He does not think that it will help. PT-OP-C Subjective Start: 03/04/20 13:34 Freq: Status: Active Protocol: Document 04/17/20 09:48 MB (Rec: 04/17/20 10:24 MB [id number]) OP-PT Subjective Patient Comments Patient Comments I might have hurt my shoulder bicycling. Pt states that he biked and that the jolts might have hurt his shoulder. PT-OP-G Mobility & Gait Start: 03/04/20 13:34 Freq: Status: Active Protocol: Document 03/05/20 13:00 MB (Rec: 03/05/20 14:30 MB [id number]) OP Gait Assessment Gait Gait Assistance Required: Independent Distance (Feet) 50 Able to Maintain Weight Bearing Status Yes During Gait Assistive Devices Assistive Device None Gait Deviations General Gait Pattern Within Normal Limits Factors Limiting Gait Function Factors Limiting Gait Function Limited Range of Motion Comments Gait Comments Pt's gait is quick. His right scapula, shoulder and arm do not move much with gait and his right scapular area is in general rigid. Pt has right arm tremor and he tends to put his right hand in his pocket or behind him during assessment. PT-OP-J Posture/Palpation/Skin Start: 03/04/20 13:34 Freq: Status: Active Protocol: Document 03/05/20 13:00 MB (Rec: 03/05/20 14:30 MB [id number]) Posture Evaluation Comments Posture Comments Standing posture: forward head with left tragus 3.5 in front of AC joint, rounded shoulders, Dowager's hump, decreased thoracic kyphosis and pt with forward trunk over pelvis, left shoulder is higher than the right, right clavicle is more prominent in appearance than the left (he denies AC joint popping or history of clavicular injury), xiphoid process protrudes, linea alba/midline curves with convexity to the left, right iliac crest is higher than the right, noticeable lump distal right biceps area. PT-OP-K Range of Motion Start: 03/04/20 13:34 Freq: Status: Active Protocol: Document 03/05/20 13:00 MB (Rec: 03/05/20 14:30 MB [id number]) Shoulder Goniometric Range of Motion Shoulder Right Shoulder ROM WFL No Testing Position Standing Flexion 175 Abduction 175 Internal Rotation Behind Back (text) Thumb at T8 Comments Right active shoulder ROM is very functional for pt age but it is not equal to the left, which is hypermobile. He has only mild discomfort with lowering his arm in latissimus area near lateral scapular border and across proximal arm near the middle of the deltoid. His right arm is his dominant side, also the side affected by his PD, per pt report. PROM ER and IR in supine with shoulder at 90/90 is normal. Left Shoulder ROM WFL Yes Testing Position Standing Flexion 180 Abduction 180 Internal Rotation Behind Back (text) Thumb at T6 Comments Pt's left shoulder is hypermobile and may go beyond 180. PROM left shoulder ER and IR in supine with shoulder at 90/90 normal. PT-OP-M Strength Start: 03/04/20 13:34 Freq: Status: Active Protocol: Document 03/05/20 13:00 MB (Rec: 03/05/20 15:32 MB [id number]) Shoulder Strength Shoulder Manual Muscle Testing Right Flexion 3+ Fair+ Abduction (C5) 3 Fair External Rotation 3+ Fair+ Internal Rotation 3+ Fair+ Comments Pt reports most discomfort with abduction and pain is localize around proximal arm around the deltoid area. Elbow/Forearm Strength Elbow and Forearm Manual Muscle Testing Left Flexion (C6) 5 Normal Extension (C7) 5 Normal Pronation 5 Normal Supination 5 Normal Right Flexion (C6) 4 Good Extension (C7) 5 Normal Pronation 5 Normal Supination 5 Normal Wrist Strength Wrist Manual Muscle Testing Left Flexion (C7) 5 Normal Extension (C6) 5 Normal Right Flexion (C7) 5 Normal Extension (C6) 5 Normal PT-OP-Q Treatments Start: 03/04/20 13:34 Freq: Status: Active Protocol: Document 04/17/20 09:48 MB (Rec: 04/17/20 10:24 MB [id number]) Manual Therapy Treatment Other Other Manual Treatments Pt prone: gentle rib recoil and scapular mobs B, MWM right anterior and posterior deltoid with PT performing TrP pressure and pt performing active shoulder movement, also proximal biceps on the right Self-Care/Home Management Treatment Education Other Education Con't exercises, follow-up with Dr. Li about his right shoulder changes and pain, benefits of orthopedic consult in setting of likely tear, reasoning for d/cing PT since he con't to state he does not know if it is helpful and also d/t he recently injured it, safer swimming stroke of side or breast stroke and treading water if he does go back to the pool, benefits of good shocks and riding on biking trail that is paved if he is going to bike to help reduce shocks through his arms, benefits of icing. PT-OP-T Assessment and Plan Start: 03/04/20 13:34 Freq: Status: Active Protocol: Document 04/17/20 09:48 MB (Rec: 04/17/20 10:24 MB [id number]) Physical Therapy Assessment Rehab Potential Rehabilitation Potential Fair Evaluation Complexity Number of Personal Factors/Comorbidities 1-2 Number of Body Systems Impaired 1-2 Clinical Presentation at Evaluation Evolving Impairments Impairments Pain,Posture,Soft Tissue Mobility,Strength Other Concerns Fall Risk Yes, history of PD and reports of dizziness getting up Goals 3 Care Home Goal (LTG) Pt will present with improved right shoulder flexion, abduction, ER and IR strength to at least 4/5 to improve functional use of arm by . 04/17/20: MMT deferred d/t pt has new complaints of pain after biking. LTG Duration Not tested 2 Care Home Goal (LTG) Pt will perform progressive HEP with I including self- myofascial, thoracic flexibility, postural and strengthening exercises to decrease pain and improve strength by 05/05/20. 04/17/20: Pt is performing band strengthening and racquet ball massage. It is unclear if he is doing pectoralis stretch when PT asks. LTG Duration Some progress 1 Care Home Goal (LTG) Pt will present with improved QuickDASH score to reflect no more than 15% impairment to reflect decreased pain and to prepare pt to get back to swimming by 05/05/20. 04/17/20: QuickDASH score reflects 34.9% impairment LTG Duration Not met Assessment Summary Assessment Pt states that does not think that PT has been that helpful and that he also hurt his shoulder biking. He reports concern about remembering PT appointments and getting appointments scheduled. Recommend follow-up with Dr. Li about orthopedic work-up given visible biceps deformity and likely other rotator cuff/labral injury. Pt presents with some hearing changes, PD changes including cognitive changes, anxiety about COVID and is awaiting his vaccination. These have been challenges to PT. Pt has plateaued and will d/c PT and encouraged pt to con't exercises and follow-up with provider. Physical Therapy Plan Other Referrals/Consults Referrals/Consults Recommended Return to doctor if ongoing pain after biking, orthopedic consult given visible changes of right biceps and possible other rotator cuff/labral injury and little success with PT Discharge Physical Therapy Discharge Reasons Plateau in Progress
== END 2020-05-02 11:51 | disposition home or self-care (01) ==
LOC: PHYS 09:45
PROVIDERS: Family Provider Psychiatry & Neurology Neurology; PCP Student in an Organized Health Care Education/Training Program; Referring Provider Student in an Organized Health Care Education/Training Program; Visit Provider Student in an Organized Health Care Education/Training Program
DX: M25.511 Pain in right shoulder (principal); G20 Parkinson's disease
CPT/HCPCS: 97110; 97140; 97161; 97535

== ENCOUNTER → 2020-04-18 15:41 | Outpatient (CLI) | payer MEDICARE, SELFPAY ==
[2020-04-18] MEDS: COVID-19 VACC, Ad26(JANSSEN)/PF 0.5 ML IM (15:52)
== END ==
PROVIDERS: Family Provider Psychiatry & Neurology Neurology; PCP Student in an Organized Health Care Education/Training Program; Visit Provider Internal Medicine
DX: Z23 Encounter for immunization (principal)
CPT/HCPCS: 0031A; 91303

== ENCOUNTER → 2020-09-09 17:22 | Outpatient (CLI) | payer OTHER, SELFPAY ==
[2020-09-09 18:49] LABS: Prostate Specific Antigen < 0.064 ng/mL (0.10-4.00)
== END ==
PROVIDERS: Family Provider Psychiatry & Neurology Neurology; PCP Student in an Organized Health Care Education/Training Program; Referring Provider Specialist; Visit Provider Specialist
DX: R39.9 Unspecified symptoms and signs involving the genitourinary system (principal); Z85.46 Personal history of malignant neoplasm of prostate; Z12.5 Encounter for screening for malignant neoplasm of prostate
CPT/HCPCS: 36415; 84153

== ENCOUNTER → 2020-12-02 11:03 | Outpatient (CLI) | payer OTHER, SELFPAY ==
[2020-12-02 12:51] LABS: Alanine Aminotransferase 5 IU/L (<50); Albumin 4.3 g/dL (3.5-5.0); Albumin Globulin Ratio 1.8 (1.0-2.8); Alkaline Phosphatase 45 U/L (38-126); Aspartate Aminotransferase 23 IU/L (17-59); BUN Creatinine Ratio 22.7 (6-22); Bilirubin Total 1.9 mg/dL (0.2-1.3); Blood Urea Nitrogen 22 mg/dL (9-20); Calcium 9.5 mg/dL (8.4-10.2); Carbon Dioxide 29 mmol/L (22-32); Chloride 103 mmol/L (98-107); Estimated Glomerular Filt Rate > 60.0 mL/min (>60); Globulin 2.4 g/dL (1.7-4.1); Glucose 93 mg/dL (80-110); HEMOLYSIS < 15 (0-50); Sodium 139 mmol/L (137-145); Total Protein 6.7 g/dL (6.3-8.2)
== END ==
PROVIDERS: Family Provider Psychiatry & Neurology Neurology; PCP Student in an Organized Health Care Education/Training Program; Referring Provider Student in an Organized Health Care Education/Training Program; Visit Provider Student in an Organized Health Care Education/Training Program
DX: I10 Essential (primary) hypertension (principal); E80.4 Gilbert syndrome; Z79.899 Other long term (current) drug therapy
CPT/HCPCS: 36415; 80053

== ENCOUNTER → 2021-09-17 16:46 | Outpatient (CLI) | payer OTHER, SELFPAY ==
[2021-09-17 17:27] LABS: BUN Creatinine Ratio 16.5 (6-22); Blood Urea Nitrogen 20 mg/dL (9-20); Cholesterol 128 mg/dL (140-199); Estimated Glomerular Filt Rate > 60 mL/min (>60); HDL Cholesterol 56 mg/dL (40-60); LDL Cholesterol Calculated 33 mg/dL (<100); Triglycerides 195 mg/dL (35-150)
[2021-09-17 18:09] LABS: Prostate Specific Antigen < 0.064 ng/mL (0.10-4.00)
== END ==
PROVIDERS: Family Provider Psychiatry & Neurology Neurology; PCP Student in an Organized Health Care Education/Training Program; Referring Provider Student in an Organized Health Care Education/Training Program; Visit Provider Student in an Organized Health Care Education/Training Program
DX: I10 Essential (primary) hypertension (principal); Z85.46 Personal history of malignant neoplasm of prostate; E78.5 Hyperlipidemia, unspecified
CPT/HCPCS: 36415; 80061; 82565; 84153; 84520

== ENCOUNTER → 2022-10-12 09:41 | Outpatient (CLI) | payer OTHER, SELFPAY ==
[2022-10-12 14:50] LABS: Microalbumi Creatinin Ratio Ur 5.4 ug/mg CR (<30)
== END ==
PROVIDERS: Family Provider Psychiatry & Neurology Neurology; PCP Student in an Organized Health Care Education/Training Program; Visit Provider Pediatrics
DX: I10 Essential (primary) hypertension (principal)
CPT/HCPCS: 82043; 82570

== ENCOUNTER → 2022-10-12 10:01 | Outpatient (CLI) | payer OTHER, SELFPAY ==
[2022-10-12 10:34] LABS: Add Manual Diff / Slide Review NO; Basophils Absolute Auto 100 /uL (0-100); Basophils Percent Auto 0.7 % (0-2); Eosinophils Absolute Auto 0 /uL (0-450); Eosinophils Percent Auto 0.4 % (2-4); Hematocrit 42.7 % (41-53); Hemoglobin 14.5 g/dL (13.5-17.5); Lymphocytes Absolute Auto 1200 /uL (1100-4500); Mean Corpuscular Hemoglobin 31.3 PG (26-34); Mean Corpuscular Volume 92.2 fL (80-100); Monocytes Absolute Auto 400 /uL (0-900); Monocytes Percent Auto 4.2 % (3-14); Neutrophils Absolute Auto 6600 /uL (1500-7000); Neutrophils Percent Auto 79.7 % (50-75); Platelet Count 185 X10^3/uL (150-400); Red Blood Cell Count 4.63 X10^6/uL (4.5-5.9); Red Cell Distribution Width 12.7 % (11.6-14.8); White Blood Cell Count 8.2 X10^3/uL (4.5-11.0)
[2022-10-12 11:02] LABS: Alanine Aminotransferase 9 IU/L (<50); Albumin 4.4 g/dL (3.5-5.0); Albumin Globulin Ratio 1.7 (1.0-2.8); Alkaline Phosphatase 52 U/L (38-126); Aspartate Aminotransferase 22 IU/L (17-59); BUN Creatinine Ratio 20.7 (6-22); Bilirubin Total 3.2 mg/dL (0.2-1.3); Blood Urea Nitrogen 19 mg/dL (9-20); Calcium 9.4 mg/dL (8.4-10.2); Carbon Dioxide 25 mmol/L (22-32); Chloride 103 mmol/L (98-107); Cholesterol 143 mg/dL (140-199); Estimated Glomerular Filt Rate > 60 mL/min (>60); Globulin 2.6 g/dL (1.7-4.1); Glucose 115 mg/dL (80-110); HDL Cholesterol 65 mg/dL (40-60); HEMOLYSIS < 15 (0-50); LDL Cholesterol Calculated 47 mg/dL (<100); Potassium 4.1 mmol/L (3.4-5.1); Sodium 137 mmol/L (137-145); Triglycerides 155 mg/dL (35-150)
== END ==
PROVIDERS: Family Provider Psychiatry & Neurology Neurology; PCP Pediatrics; Referring Provider Pediatrics; Visit Provider Pediatrics
DX: E78.5 Hyperlipidemia, unspecified (principal); F41.9 Anxiety disorder, unspecified; E80.4 Gilbert syndrome; G20 Parkinson's disease; G62.9 Polyneuropathy, unspecified; I10 Essential (primary) hypertension; Z85.46 Personal history of malignant neoplasm of prostate
CPT/HCPCS: 36415; 80053; 80061; 82043; 82570; 85025

== ENCOUNTER → 2022-10-21 06:25 | Outpatient (CLI) | payer OTHER, SELFPAY ==
--- NOTE | 2022-10-21 06:26 | DI.ECHO.S_ITS ---
[facility] +---------+ : : [address] : : : : [phone] : : : : Phone: [phone]+ Echocardiogram Report + + :Name: JEANETH BUCK Study Date: 10/21/2022 Height: 68 in : :[facility] ReadingLocation: Weight: 150 lb : : Gender: Male BSA: 1.8 m2 : :: 1945 Age: 77 yrs BP: 136/74 mmHg: :Reason For Study: HYPERTENSION : :Ordering Physician: GABRIELLE, : :PRASANNA Valdez Performed By: Sabine Brewer : :Referring: PRASANNA ANTHONY : + + Interpretation Summary The left ventricle is normal in size and wall thickness. Left ventricular systolic function appears normal without focal wall motion abnormalities. The ejection fraction is estimated to be 60-65%. Diastolic parameters suggest a relaxation abnormality of the left ventricle, consistent with probable normal filling pressures. The right ventricle is normal in size and function. The left atrial size is normal. There is mild mitral regurgitation. There is mild aortic stenosis. The aortic root is normal size. Procedure: A two-dimensional transthoracic echocardiogram with color flow and Doppler was performed. The study quality was technically adequate. There is no prior echocardiogram noted for this patient. The patient was in sinus bradycardia with heart rates between 53-63 bpm during the exam. Left Ventricle: The left ventricle is normal in size and wall thickness. Left ventricular systolic function appears normal without focal wall motion abnormalities. The ejection fraction is estimated to be 60-65%. Diastolic parameters suggest a relaxation abnormality of the left ventricle, consistent with probable normal filling pressures. Right Ventricle: The right ventricle is normal in size and function. Atria: The left atrial size is normal. Right atrial size is normal. Doppler interrogation and injection of saline echo contrast shows no evidence for an interatrial shunt. Mitral Valve: The mitral valve is normal in structure and function. There is mild mitral regurgitation. Aortic Valve: The aortic valve is moderately calcified. The peak aortic velocity is 2.6 m/sec. The aortic valve mean gradient is 15 mmHg. There is mild aortic stenosis. There is trace aortic regurgitation. Tricuspid Valve: The tricuspid valve is normal in structure and function. There is trace tricuspid regurgitation. Pulmonic Valve: The pulmonic valve leaflets are thin and pliable; valve motion is normal. There is trace pulmonic regurgitation. Great Vessels: The aortic root is normal size. The ascending aorta is at the upper limits of normal in size. The inferior vena cava was not visualized. Pericardium/ Pleura There is no pericardial effusion. There is no pleural effusion. MMode/2D Measurements & Calculations LVIDd: 4.9 cm LVOT diam: 2.1 cm LVIDs: 3.0 cm Ao root diam: 3.1 cm FS: 38.4 % asc Aorta Diam: 3.7 cm IVSd: 1.1 cm Ao Arch Diam (Prox Trans): 2.6 cm LVPWd: 0.85 cm LV alex. diameter/BSA (cm/m^2): 2.7 LV sys. diameter/BSA (cm/m^2): 1.7 LA A2 area: 22.9 cm2 RA long axis: 5.6 cm LA A4 area: 15.7 cm2 RA area: 15.2 cm2 LA length (vol): 5.7 cm RA vol: 35.4 ml LA vol: 53.8 ml RA : 19.6 ml/m2 LA vol index: 29.7 ml/m2 IVC diam: 1.3 cm TAPSE: 1.9 cm Doppler Measurements & Calculations Ao V2 max: 257.5 cm/sec LVOT Max Tamir: 106.8 cm/sec Ao V2 mean: 170.2 cm/sec LV V1 max P.6 mmHg Ao max P.5 mmHg LV V1 VTI: 25.4 cm Ao mean P.6 mmHg RAZA(I,D): 1.5 cm2 Ao V2 VTI: 57.2 cm RAZA(V,D): 1.4 cm2 sev ratio: 0.44 RAZA indexed to BSA (cm^2/m^2): 0.83 MV E max tamir: 52.7 cm/sec PA pr(Accel): 36.2 mmHg MV A max tamir: 61.2 cm/sec MV E/A: 0.86 Med Peak E' Tamir: 8.7 cm/sec E/E' med: 6.0 Lat Peak E' Tamir: 7.9 cm/sec E/E' lat: 6.7 E/e' average: 6.3 MV dec time: 0.24 sec SV(LVOT): 86.0 ml Reading Physician:06:27 PM
== END ==
PROVIDERS: Family Provider Psychiatry & Neurology Neurology; PCP Pediatrics; Referring Provider Pediatrics; Visit Provider Pediatrics
DX: I10 Essential (primary) hypertension (principal); I08.0 Rheumatic disorders of both mitral and aortic valves
CPT/HCPCS: 93306

== ENCOUNTER 2023-10-24 08:16 | Inpatient (IN) | payer OTHER, SELFPAY ==
[2023-10-24] VITALS (11 sets, daily range): BP systolic 114–147; BP diastolic 61–79; PULSE 75–89; RESP 12–18; TEMP 36.1–37.2; O2SAT 94–98
--- NOTE | 2023-10-24 08:21 | DI.RAD.S_ITS ---
PROCEDURE: XR CHEST 1V INDICATIONS: weakness TECHNIQUE: One view of the chest was acquired. COMPARISON: [facility], , CHEST 2 VIEW, 02/28/2015, 10:58. FINDINGS: Surgical changes and devices: None. Lungs and pleura: Hazy left basilar opacity. No pleural effusions or pneumothorax. Low lung volumes. Mediastinum: Mediastinal contours appear normal. Heart size is normal. Bones and chest wall: No suspicious bony lesions. Overlying soft tissues appear unremarkable. IMPRESSION: Hazy left basilar opacity, probably atelectasis in the setting of low lung volumes. Dictated by: Farzad Chen M.D. on 10/24/2023 at 9:01 Approved by: Farzad Chen M.D. on 10/24/2023 at 9:03
--- NOTE | 2023-10-24 08:21 | DI.CT.S_ITS ---
PROCEDURE: CT HEAD/BRAIN WO CON INDICATIONS: unwitness fall, weakness TECHNIQUE: Noncontrast 4.5 mm thick angled axial sections acquired from the foramen magnum to the vertex, with coronal and sagittal reformats. For radiation dose reduction, the following was used: automated exposure control, adjustment of mA and/or kV according to patient size. COMPARISON: None. FINDINGS: Image quality: Diagnostic. CSF spaces: Basal cisterns are patent. No extra-axial fluid collections. The ventricles are symmetric in size and shape. Brain: No intracranial bleeds or masses. There is cerebral volume loss for age, with resultant ventricular and sulcal prominence. There are periventricular and deep white matter chronic small vessel ischemic changes. There is intracranial internal carotid artery atherosclerosis. Skull and face: Calvarium and visualized facial bones appear intact, without suspicious lesions. Sinuses: Visualized sinuses and mastoids are clear. IMPRESSION: No acute intracranial pathology. Dictated by: Farzad Chen M.D. on 10/24/2023 at 9:03 Approved by: Farzad Chen M.D. on 10/24/2023 at 9:04
--- NOTE | 2023-10-24 08:23 | ED_ITS ---
HPI - Altered Mental Status General Chief Complaint: Altered Mental Status Stated Complaint: found down 8-10 hrs Time Seen by Provider: 10/24/23 08:21 Source: patient and EMS Mode of arrival: EMS Limitations: altered mental status History of Present Illness HPI narrative: Patient is a 78-year-old male past medical history of Parkinson's, hyperlipidemia hypertension brought into the ED via EMS for evaluation of unwitnessed fall. Patient apparently lives alone, last seen yesterday night, according to EMS patient has a friend who checks in on him daily, states that today checked on him in the morning and he was face down on the floor, according to EMS the patient is only intermittently alert to self this is his baseline. At time of initial evaluation patient is moving all 4 extremities is alert to self but does appear confused. Patient was down for approximately 8-10 hours. Therefore additional rest HPI limited secondary to this. Related Data Previous Rx's Medication Instructions Recorded food supplemt, lactose-reduced 1 ea PO BID #14,220 mL 10/12/22 (Ensure oral liquid) carbidopa 25 mg-levodopa 100 mg 1 tab PO TID #90 tabs 07/07/23 tablet (Sinemet) lisinopril 10 mg tablet 10 mg PO DAILY #30 tabs 07/07/23 rasagiline 1 mg tablet 1 mg PO DAILY #30 tabs 07/07/23 simvastatin 20 mg tablet 20 mg PO ONCE PM #90 tabs 07/13/23 Allergies Allergy/AdvReac Type Severity Reaction Status Date / Time hyoscyamine AdvReac Mild Itchy eyes Verified 05/26/23 08:59 Review of Systems Review of Systems ROS Unobtainable: Unobtainable due to mental status/LOC Patient History Medical History (Updated 10/24/23 @ 09:58 by Gregory Yang DO) Elevated PSA (06/19/10) External hemorrhoids without mention of complication (01/18/03) Parkinson's disease (~05/2014) Peripheral neuropathy (~2011) Prostate cancer (06/2010) Hyperlipemia (Unknown) Hearing loss (Unknown) Surgical History Hx of tonsillectomy (Unknown) S/P nasal septoplasty (Unknown) Status post biopsy Family History Sister History of breast cancer Mother No problems noted. Social History Smoking Status: Never smoker second hand exposure: No alcohol intake: current substance use type: marijuana (smoke every couple days) Smoking Status: Never smoker alcohol intake frequency: 0-2 drinks per day Substance Use Type: does not use Exam Narrative Exam Narrative: General: Elderly, frail, cachectic HEENT: Normocephalic, atraumatic, PERRLA, normal sclera, eyelids normal, Neck: Active full range of motion, atraumatic Chest: Erythema noted to the chest wall, there also appears to be abrasion noted to the right chest wall. Respiratory: Normal respiratory effort, not in acute respiratory distress, clear to auscultation bilaterally negative cough, wheeze, tachypnea, rhonchi, rales Cardiology: Regular rate rhythm negative gallop, murmur, rubs GI/: Normal to inspection, soft, nonrigid, no tenderness to palpation, exam deferred Skin: Redness noted to the chest wall and right shoulder consistent with patient having laid down for approximately 8-10 hours Neuro: Moves all 4 extremities spontaneously, able to follow simple commands, alert to self only this has baseline Initial Vital Signs Initial Vital Signs: Vital Signs Pulse Rate 88 10/24/23 08:17 Course Orders Ordered: ED Orders 10/24/23 08:10 Complete Blood Count AUTO DIFF Stat Comprehensive Metabolic Panel Stat Lactate (Lactic Acid) Stat MAG [Magnesium] Stat NT-proBNP (BNP-Adult 18+) Stat PTT Partial Thromboplastin Rm Stat Procalcitonin Stat Prothrombin Time INR Stat Troponin & CK Cardiac Panel Stat 10/24/23 08:21 CT head/brain wo con Stat XR chest 1V Stat EKG-12 Lead Stat 10/24/23 08:28 CT cervical spine wo con Stat 10/24/23 08:30 Covid-19 + FLU A/B + RSV - PCR Stat 10/24/23 08:40 Ictotest Urine Stat Urinalysis and Microscopic Stat 10/24/23 09:08 Consult to PRESS AND BLOW MACHINE TENDER - Neurology Epilepsy Physician Stat Lorazepam (Lorazepam 2 Mg/Ml Inj) 1 mg IV Q4HR PRN PRN Reason: Anxiety Discontinued Medications Sodium Chloride (Normal Saline 0.9%) 1,000 mls @ 1,000 mls/hr IV BOLUS ONE Stop: 10/24/23 09:26 Last Infusion: 10/24/23 10:13 Dose: Infused Documented By: Admin: 10/24/23 08:54 Dose: 1,000 mls/hr Documented By: MILA Morphine Sulfate (Morphine 4 Mg/Ml Inj) 4 mg IV NOW ONE Stop: 10/24/23 09:34 Last Admin: 10/24/23 09:36 Dose: 4 mg Documented By: MILA Vital Signs Vital signs: Vital Signs - 8 hr 10/24/23 08:17 10/24/23 08:19 10/24/23 08:22 Temperature 98.6 F Pulse Rate 88 89 Respiratory Rate 18 Blood Pressure 132/76 132/76 Pulse Oximetry 94 Oxygen Delivery Method Room Air 10/24/23 08:30 10/24/23 08:30 10/24/23 08:51 Temperature 97.0 F L Pulse Rate 80 Respiratory Rate 14 Blood Pressure 138/79 145/73 H Pulse Oximetry 95 Oxygen Delivery Method 10/24/23 08:51 10/24/23 09:00 10/24/23 09:00 Temperature 98.1 F 98.2 F Pulse Rate 80 80 Respiratory Rate 12 12 Blood Pressure 133/66 Pulse Oximetry 98 98 Oxygen Delivery Method 10/24/23 09:30 10/24/23 09:30 10/24/23 10:00 Temperature 98.4 F Pulse Rate 85 Respiratory Rate 14 Blood Pressure 147/71 H 114/61 Pulse Oximetry 98 Oxygen Delivery Method 10/24/23 10:00 Temperature 98.6 F Pulse Rate 75 Respiratory Rate 12 Blood Pressure Pulse Oximetry 98 Oxygen Delivery Method MDM - Altered Mental Status Differential Diagnosis Differential diagnosis: Likely altered mental status, dementia, hypoglycemia, hyponatremia, other, subarachnoid hemorrhage and sepsis Medical Records Attestation: I reviewed the patient's medical records. Lab Data Attestation: I reviewed the patient's lab results. 10/24/23 08:10 10/24/23 08:10 Labs: Lab Results 10/24/23 10/24/23 10/24/23 Range/Units 08:10 08:30 08:40 WBC 11.5 H (4.5-11.0) X10^3/uL RBC 4.71 (4.5-5.9) X10^6/uL Hgb 14.8 (13.5-17.5) g/dL Hct 43.2 (41-53) % MCV 91.8 (80-100) fL MCH 31.4 (26-34) PG MCHC 34.2 (30-36) % RDW 12.1 (11.6-14.8) % Plt Count 183 (150-400) X10^3/uL Neut % (Auto) 93.3 H (50-75) % Lymph % (Auto) 2.5 L (25-40) % [place] % (Auto) 4.1 (3-14) % Eos % (Auto) 0.0 L (2-4) % Baso % (Auto) 0.1 (0-2) % Neut # (Auto) 36695 H (8135-7818) /uL Lymph # (Auto) 300 L (8492-6821) /uL [place] # (Auto) 500 (0-900) /uL Eos # (Auto) 0 (0-450) /uL Baso # (Auto) 0 (0-100) /uL PT 12.9 H (9.4-12.5) SECONDS INR 1.1 (0.9-1.3) APTT 31 (25.1-36.5) SECONDS Sodium 139 (137-145) mmol/L Potassium 3.4 (3.4-5.1) mmol/L Chloride 104 (98-107) mmol/L Carbon Dioxide 25 (22-32) mmol/L BUN 26 H (9-20) mg/dL Creatinine 1.07 (0.66-1.25) mg/dL Estimated GFR > 60 (>60) mL/min BUN/Creatinine Ratio 24.3 H (6-22) Glucose 113 H (80-110) mg/dL Lactate 2.1 (0.7-2.1) mmol/L Calcium 9.3 (8.4-10.2) mg/dL Magnesium 2.2 (1.6-2.3) mg/dL Total Bilirubin 3.9 H (0.2-1.3) mg/dL AST 84 H (17-59) IU/L ALT 32 (<50) IU/L Alkaline Phosphatase 57 (38-126) U/L Total Creatine Kinase 2752 H (55-170) U/L Troponin I 0.636 H* (0.01-0.034) ng/mL NT-Pro-B Natriuret Pep 414 (<450) pg/mL Total Protein 7.2 (6.3-8.2) g/dL Albumin 4.4 (3.5-5.0) g/dL Globulin 2.8 (1.7-4.1) g/dL Albumin/Globulin Ratio 1.6 (1.0-2.8) Procalcitonin 0.120 (<0.5) ng/mL Urine Color Yellow Urine Appearance Clear Urine pH 5.0 (4.5-8.0) Ur Specific [place] >=1.030 H (1.000-1.035) Urine Protein 1+ H (Negative) Urine Glucose (UA) Negative (Negative) g/dL Urine Ketones 2+ H (NEGATIVE) Urine Occult Blood 3+ H (Negative) Urine Nitrate Negative (Negative) Urine Bilirubin 1+ H (NEGATIVE) Ur Bilirubin Confirm Negative (Negative) Urine Urobilinogen 0.2 (0.2) E.U./dL Ur Leukocyte Esterase Negative (NEGATIVE) Urine RBC 0-1/hpf (0-5/HPF) Urine WBC 0-1/hpf (0-5/HPF) Ur Squamous Epith Cells 0-1 /hpf (0-5/HPF) Urine Bacteria Occasional (0-1) (None) Hyaline Casts 0-1/lpf (None) Ur Culture Indicated? Cult not indicated Vol Urine Centrifuged 10ml (spun) SARS-CoV-2 (PCR) Negative (Negative) Influenza A (RT-PCR) Flu a negative (NEGATIVE) Influenza B (RT-PCR) Flu b negative (NEGATIVE) RSV (PCR) Negative (Negative) ECG Data Attestation: I personally reviewed and interpreted this ECG as follows: Interpretation: EKG interpreted by ED physician sinus 80 beats per minute QTC 455, normal axis nonspecific ST changes no STEMI MDM Narrative Medical decision making narrative: Patient is a 78-year-old male past medical history of hyperlipidemia hypertension Parkinson's brought in by EMS for evaluation of unwitnessed fall patient last known normal about 8-10 hours ago patient lives at home alone friend who is POA states that he checks on him daily found him on the floor at his baseline which is only intermittently alert to self, patient showing signs/symptoms concerns for sepsis, nontraumatic rhabdomyolysis, however upon review of healthcare directive patient showing that he does not want any artificial hydration nutrition or antibiotic therapy, I had another discussion with patient's power of front tender who states that he does not want any aggressive intervention at this time, states that he has had a very gradual decline in his health and they were in the process of trying to pursue hospice care. He states that he does not want the patient have any additional interventions at this time except to be comfortable, he states he will arrive to fill out additional forms so that patient can be transitioned to hospice care, however at this time verbally agreeing to transition patient to hospice/comfort care at this time. The patient's management plan was discussed Dr. Bain, who agrees to admit the patient to their service and assumes care of this patient at this time. Full admission orders will be placed by the primary team. Discharge Plan Departure Patient Disposition: Admitted As Inpatient Clinical Impression: Need for comfort care, Elevated troponin, Acute renal failure due to rhabdomyolysis
--- NOTE | 2023-10-24 08:28 | DI.CT.S_ITS ---
PROCEDURE: CT CERVICAL SPINE WO CON INDICATIONS: trauma TECHNIQUE: Noncontrast 3 mm thick sections acquired from the skull base to the T4 level. Sagittal and coronal reformats were then constructed. For radiation dose reduction, the following was used: automated exposure control, adjustment of mA and/or kV according to patient size. COMPARISON: None. FINDINGS: Image quality: Excellent. Bones: No fractures or dislocations. Visualized superior ribs are intact. Moderate to severe, multilevel degenerative disc disease and diffuse facet arthrosis. Grade 1 anterolisthesis of C7 on T1 due to facet arthrosis. Soft tissues: Prevertebral soft tissues are normal in thickness. No paravertebral hematomas. No apical pneumothoraces. IMPRESSION: No displaced fracture or traumatic subluxation. Dictated by: Farzad Chen M.D. on 10/24/2023 at 9:04 Approved by: Farzad Chen M.D. on 10/24/2023 at 9:08
[2023-10-24 08:33] LABS: Add Manual Diff / Slide Review NO; Basophils Absolute Auto 0 /uL (0-100); Basophils Percent Auto 0.1 % (0-2); Eosinophils Absolute Auto 0 /uL (0-450); Hematocrit 43.2 % (41-53); Hemoglobin 14.8 g/dL (13.5-17.5); Lymphocytes Absolute Auto 300 /uL (1100-4500); Lymphocytes Percent Auto 2.5 % (25-40); Mean Corpuscular HGB Conc 34.2 % (30-36); Mean Corpuscular Hemoglobin 31.4 PG (26-34); Mean Corpuscular Volume 91.8 fL (80-100); Monocytes Absolute Auto 500 /uL (0-900); Monocytes Percent Auto 4.1 % (3-14); Neutrophils Absolute Auto 10700 /uL (1500-7000); Neutrophils Percent Auto 93.3 % (50-75); Platelet Count 183 X10^3/uL (150-400); Red Blood Cell Count 4.71 X10^6/uL (4.5-5.9); Red Cell Distribution Width 12.1 % (11.6-14.8); White Blood Cell Count 11.5 X10^3/uL (4.5-11.0)
[2023-10-24 08:34] LABS: INR 1.1 (0.9-1.3); Prothrombin Time 12.9 SECONDS (9.4-12.5)
[2023-10-24 08:42] LABS: PTT Partial Thromboplastin Tim 31 SECONDS (25.1-36.5)
[2023-10-24 08:46] LABS: Alanine Aminotransferase 32 IU/L (<50); Albumin 4.4 g/dL (3.5-5.0); Albumin Globulin Ratio 1.6 (1.0-2.8); Alkaline Phosphatase 57 U/L (38-126); Aspartate Aminotransferase 84 IU/L (17-59); BUN Creatinine Ratio 24.3 (6-22); Bilirubin Total 3.9 mg/dL (0.2-1.3); Blood Urea Nitrogen 26 mg/dL (9-20); Calcium 9.3 mg/dL (8.4-10.2); Carbon Dioxide 25 mmol/L (22-32); Chloride 104 mmol/L (98-107); Estimated Glomerular Filt Rate > 60 mL/min (>60); Globulin 2.8 g/dL (1.7-4.1); Glucose 113 mg/dL (80-110); HEMOLYSIS < 15 (0-50); Potassium 3.4 mmol/L (3.4-5.1); Sodium 139 mmol/L (137-145); Total Protein 7.2 g/dL (6.3-8.2)
[2023-10-24 08:47] LABS: Lactate (Lactic Acid) 2.1 mmol/L (0.7-2.1); Magnesium 2.2 mg/dL (1.6-2.3)
[2023-10-24 08:53] LABS: Appearance Urine UA CLEAR; Bilirubin Urine UA 1+ (NEGATIVE); Color Urine UA YELLOW; Glucose Urine UA NEGATIVE (Negative); Ketones Urine UA 2+ (NEGATIVE); Leukocyte Esterase Urine UA NEGATIVE (NEGATIVE); Nitrite Urine UA NEGATIVE (Negative); Occult Blood Urine UA 3+ (Negative); Protein Urine UA 1+ (Negative); Specific Gravity Urine UA >=1.030 (1.000-1.035); Urobilinogen Urine UA 0.2 E.U./dL (0.2)
[2023-10-24 08:53] LABS: Creatine Kinase 2752 U/L (55-170)
[2023-10-24] MEDS: SODIUM CHLORIDE 0.9% 1,000 ML 1000 ML IV (08:54)
--- NOTE | 2023-10-24 08:55 | EKG_ITS ---
[address] [address] Test Date: 2023-10-24 Pat Name: Farzad Dan Department: Merged [facility] Room: Gender: Male [employer] Agent: LORRAINE : 1945 Requested By: Order Number: [id number] Reading MD: Gregory Hernandez Measurements Intervals [place] Rate: 80 P: 64 MS: 180 QRS: -3 QRSD: 80 T: 20 QT: 394 QTc: 454 Interpretive Statements Normal sinus rhythm Electronically Signed On 10-27-2023 19:47:00 PDT by Gregory Hernandez
[2023-10-24 08:58] LABS: NT-proBNP (BNP-Adult 18+) 414 pg/mL (<450)
[2023-10-24 09:09] LABS: Troponin I 0.636 ng/mL (0.01-0.034)
[2023-10-24 09:11] LABS: Bacteria Urine Occasional (0-1); Culture Indicated Urine Cult Not Indicated; Hyaline Casts Urine 0-1/LPF; Ictotest Urine Negative (Negative); RBC Urine 0-1/HPF (0-5/HPF); Squamous Epithelial Cell Urine 0-1 /HPF (0-5/HPF); Urine Volume 10mL (spun); WBC Urine 0-1/HPF (0-5/HPF)
[2023-10-24 09:21] LABS: Influenza A - CEPHEID Flu A NEGATIVE (NEGATIVE); Influenza B - CEPHEID Flu B NEGATIVE (NEGATIVE); Respiratory Syncytial Virus Negative (Negative)
[2023-10-24] MEDS: MORPHINE 4 MG/ML INJ IV (09:36)
[2023-10-24 10:02] LABS: COVID-19 CEPHEID 4-PLEX PCR Negative (Negative)
[2023-10-24 10:04] LABS: Reflexed Lactate in 2 Hours Y
[2023-10-24] MEDS: LORazepam 2 MG/ML INJ 1 MG IV ×2 (10:54→12:59)
--- NOTE | 2023-10-24 10:59 | P.HP_ITS ---
History of Present Illness History of Present Illness Date Patient Seen: 10/24/23 Time Patient Seen: 12:47 Chief complaint: found down 8-10 hrs Narrative: Farzad is a 78-year-old gentleman with a past medical history of Parkinson's disease with dementia chronic anxiety hypertension hyperlipidemia history of prostate cancer. Patient lives at home by himself. He has a [id number]. Patient was brought into the emergency department for evaluation after being found down. Patient's friend who checks on him daily states that they checked on him he was face down on the floor. Patient was really not responsive at that time not communicating well and was brought to the emergency department. During emergency department evaluation laboratory tests were done CT head and neck was done he was moving extremities but not really alert or confused. Patient is unable to provide a history other than response to stimuli. Care wishes were talked with his [id number] in the emergency department and also by me this afternoon. Based on patient's previously wishes of significant Parkinson's disease. And memory loss. Patient is a do not resuscitate and comfort only in fact the [id number] and his friends were working on getting hospice out to the house this last week. As he has had a significant decline in overall health in the last 3 weeks and needing more and more caregiving support. ON LICENSE OF [facility] Medical History (Updated 10/24/23 @ 12:53 by Thomas Bain MD) Elevated PSA (06/19/10) External hemorrhoids without mention of complication (01/18/03) Parkinson's disease (~05/2014) Peripheral neuropathy (~2011) Prostate cancer (06/2010) Hyperlipemia (Unknown) Hearing loss (Unknown) Surgical History Hx of tonsillectomy (Unknown) S/P nasal septoplasty (Unknown) Status post biopsy Family History Sister History of breast cancer Mother No problems noted. Social History Smoking Status: Never smoker second hand exposure: No alcohol intake: current substance use type: marijuana (smoke every couple days) Meds Home Medications and Allergies Home Medications Medication Instructions Recorded Confirmed Type food supplemt, lactose-reduced 1 ea PO BID #14,220 mL 10/12/22 05/26/23 Rx (Ensure oral liquid) carbidopa 25 mg-levodopa 100 mg 1 tab PO TID #90 tabs 07/07/23 Rx tablet (Sinemet) lisinopril 10 mg tablet 10 mg PO DAILY #30 tabs 07/07/23 Rx rasagiline 1 mg tablet 1 mg PO DAILY #30 tabs 07/07/23 Rx simvastatin 20 mg tablet 20 mg PO ONCE PM #90 tabs 07/13/23 Rx Allergies Allergy/AdvReac Type Severity Reaction Status Date / Time hyoscyamine AdvReac Mild Itchy eyes Verified 05/26/23 08:59 Exam Vital Signs (past 8 hours): - 10/24/23 08:17 10/24/23 08:19 10/24/23 08:22 Temperature 98.6 F Pulse Rate 88 89 Respiratory Rate 18 Blood Pressure 132/76 132/76 Pulse Oximetry 94 Oxygen Delivery Method Room Air 10/24/23 08:30 10/24/23 08:30 10/24/23 08:51 Temperature 97.0 F L Pulse Rate 80 Respiratory Rate 14 Blood Pressure 138/79 145/73 H Pulse Oximetry 95 Oxygen Delivery Method 10/24/23 08:51 10/24/23 09:00 10/24/23 09:00 Temperature 98.1 F 98.2 F Pulse Rate 80 80 Respiratory Rate 12 12 Blood Pressure 133/66 Pulse Oximetry 98 98 Oxygen Delivery Method 10/24/23 09:30 10/24/23 09:30 10/24/23 10:00 Temperature 98.4 F Pulse Rate 85 Respiratory Rate 14 Blood Pressure 147/71 H 114/61 Pulse Oximetry 98 Oxygen Delivery Method 10/24/23 10:00 Temperature 98.6 F Pulse Rate 75 Respiratory Rate 12 Blood Pressure Pulse Oximetry 98 Oxygen Delivery Method Oxygen Delivery Method Room Air Narrative Exam Narrative: Gen.: Patient responds to stimuli moves extremities but non communicative HEENT: Bruising to forehead and shoulder oral mucosa is moist Cardio: Regular rate and rhythm systolic murmur present Respiratory: Normal respiratory effort Abdomen: Soft nontender Extremities: Bruising to his right upper extremity Neurologic: Unresponsive Objective Labs 10/24/23 08:10 10/24/23 08:10 Labs: Laboratory Results - last 24 hr 10/24/23 10/24/23 10/24/23 08:10 08:30 08:40 WBC 11.5 H RBC 4.71 Hgb 14.8 Hct 43.2 MCV 91.8 MCH 31.4 MCHC 34.2 RDW 12.1 Plt Count 183 Neut % (Auto) 93.3 H Lymph % (Auto) 2.5 L [place] % (Auto) 4.1 Eos % (Auto) 0.0 L Baso % (Auto) 0.1 Neut # (Auto) 98744 H Lymph # (Auto) 300 L [place] # (Auto) 500 Eos # (Auto) 0 Baso # (Auto) 0 PT 12.9 H INR 1.1 APTT 31 Sodium 139 Potassium 3.4 Chloride 104 Carbon Dioxide 25 BUN 26 H Creatinine 1.07 Estimated GFR > 60 BUN/Creatinine Ratio 24.3 H Glucose 113 H Lactate 2.1 Calcium 9.3 Magnesium 2.2 Total Bilirubin 3.9 H AST 84 H ALT 32 Alkaline Phosphatase 57 Total Creatine Kinase 2752 H Troponin I 0.636 H* NT-Pro-B Natriuret Pep 414 Total Protein 7.2 Albumin 4.4 Globulin 2.8 Albumin/Globulin Ratio 1.6 Procalcitonin 0.120 Urine Color Yellow Urine Appearance Clear Urine pH 5.0 Ur Specific [place] >=1.030 H Urine Protein 1+ H Urine Glucose (UA) Negative Urine Ketones 2+ H Urine Occult Blood 3+ H Urine Nitrate Negative Urine Bilirubin 1+ H Ur Bilirubin Confirm Negative Urine Urobilinogen 0.2 Ur Leukocyte Esterase Negative Urine RBC 0-1/hpf Urine WBC 0-1/hpf Ur Squamous Epith Cells 0-1 /hpf Urine Bacteria Occasional (0-1) Hyaline Casts 0-1/lpf Ur Culture Indicated? Cult not indicated Vol Urine Centrifuged 10ml (spun) SARS-CoV-2 (PCR) Negative Influenza A (RT-PCR) Flu a negative Influenza B (RT-PCR) Flu b negative RSV (PCR) Negative Assessment & Plan Assessment and plan (1) Rhabdomyolysis: Qualifiers: Rhabdomyolysis type: traumatic Encounter type: initial encounter Qualified Code(s): T79.6XXA - Traumatic ischemia of muscle, initial encounter Status: Acute Plan Rhabdomyolysis. Patient down for an unknown duration potentially up to 12-24 hours. Patient's CPK elevated to 1752. Patient was found down for unknown duration. CPK and troponin are elevated. Probably due to being down. We will gently hydrate the patient provide pain and antiemetic and anxiety relief. Patient's POA has signed a pulse form which is do not resuscitate and intubate. We will provide fluids and comfort management. Will also work with social service director for hospice consult. Acute metabolic encephalopathy. Patient is unresponsive CT head shows no acute cranial injury as well as CT neck. Parkinson's patient with longstanding Parkinson's currently on Parkinson's related medication this will be restarted if he is able to tolerate orals. Patient has had gradual decline the last 3 or 4 weeks. Patient's POA and friends were working on getting a hospice consult outside of the hospital but then had acute decline. Parkinson's related dementia patient with baseline confusion. Patient unresponsive. Patient has underlying dementia is unable to be assessed at this point due to his unresponsiveness Hypertension restart antihypertensives once tolerating or if tolerating orals. Hyperlipidemia patient on a statin his current statin is held Prostate cancer remote history Disposition and plan After discussion with his POA who has patient's care directives. Patient wishes for no code status and comfort care. Discussed with his POA about obtaining for future labs to check on rhabdomyolysis and cardiac enzymes hydration and IV pain medication and anxiety medication. They do not want the patient to be intubated or on life support. They do not want patient to have CPR if his heart was to stop. They are wanting his comfort to be maximized and would like a hospice consult. Time-Based Coding :: [TOTAL MINUTES] spent with patient and on the chart (including review of chart, obtaining history, exam, reviewing outside data, placing orders, documenting exam and treatment plan, and counseling patient) on [DATE].
[2023-10-24] MEDS: SODIUM CHLORIDE 0.45% 1,000 ML 100 ML IV (12:00)
[2023-10-24] MEDS: HYDROMORPHONE 0.5 MG INJ IV ×2 (16:30→23:31)
--- NOTE | 2023-10-24 19:34 | PC.NURSE ---
Patient arrived from ED this a.m. approximately 1145. He remains with eyes closed, and withdraws to pain, or moans. Multiple skin tears rug mendoza bruises scattered to front of body and left eyelid swollen. 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 IVF at 100 ml/hr, stringer in place, q2 turn, prn IV pain mediction and lorazepam for tremors and pain. Unable to complete med reconcilliation or admission assessment. Continuous monitoring for comfort. Plan for hospice.
--- NOTE | 2023-10-24 21:20 | PC.NURSE ---
NOC: Pt currently on comfort care per MD Bain, had active orders for telemetry monitoring and no tele applied. D/c'ed cont pulse ox and telemetry monitoring orders after discussing with charge nurse Marcelle JOHANSEN d/t comfort care measures.
[2023-10-25] MEDS: LORazepam 2 MG/ML INJ 1 MG IV ×5 (03:21→21:55)
[2023-10-25] MEDS: HYDROMORPHONE 0.5 MG INJ IV ×7 (03:21→23:10)
--- NOTE | 2023-10-25 03:32 | PC.NURSE ---
Addendum entered by Nirmala Marie R.N. 10/25/23 06:11: NOC: Pt had 2x more episodes of tremors and wakefulness during the night. Pt found pulling on catheter tube. Repositioned patient and recovered. Administered IV dilauded per protocol (for pain AEB crying out, facial grimacing). Original Note: NOC: At 0330 pt began having tremors in upper extremities and crying out. Administered PRN ativan and dilaudid. Pt opened eyes and responded to questions, though not intelligibly. Was able to discern that pt felt hot and wanted to take gown off; assisted with gown removal. Pt held my hand and asked me to stay at bedside. Pt grew quiet as tremors slowed, and fell asleep after a short time. Call light within reach, bed locked & low. Care continues.
[2023-10-25] MEDS: SCOPOLAMINE 1 PATCH TOP (05:16)
[2023-10-25 08:00] VITALS: BP 118/64; PULSE 60; TEMP 36.6; O2SAT 98
[2023-10-25 08:30] LABS: Add Manual Diff / Slide Review NO; Basophils Absolute Auto 100 /uL (0-100); Basophils Percent Auto 0.7 % (0-2); Eosinophils Absolute Auto 0 /uL (0-450); Eosinophils Percent Auto 0.5 % (2-4); Hematocrit 38.2 % (41-53); Hemoglobin 13.2 g/dL (13.5-17.5); Lymphocytes Absolute Auto 1400 /uL (1100-4500); Lymphocytes Percent Auto 17.1 % (25-40); Mean Corpuscular HGB Conc 34.5 % (30-36); Mean Corpuscular Hemoglobin 31.8 PG (26-34); Mean Corpuscular Volume 92.3 fL (80-100); Monocytes Absolute Auto 400 /uL (0-900); Monocytes Percent Auto 4.4 % (3-14); Neutrophils Absolute Auto 6300 /uL (1500-7000); Neutrophils Percent Auto 77.3 % (50-75); Platelet Count 158 X10^3/uL (150-400); Red Blood Cell Count 4.14 X10^6/uL (4.5-5.9); White Blood Cell Count 8.2 X10^3/uL (4.5-11.0)
[2023-10-25 08:45] LABS: BUN Creatinine Ratio 24.5 (6-22); Blood Urea Nitrogen 23 mg/dL (9-20); Calcium 8.5 mg/dL (8.4-10.2); Carbon Dioxide 24 mmol/L (22-32); Chloride 106 mmol/L (98-107); Estimated Glomerular Filt Rate > 60 mL/min (>60); Glucose 93 mg/dL (80-110); HEMOLYSIS < 15 (0-50); Potassium 3.7 mmol/L (3.4-5.1); Sodium 135 mmol/L (137-145)
[2023-10-25 09:14] LABS: Creatine Kinase 5301 U/L (55-170)
[2023-10-25 09:17] LABS: Troponin I 0.254 ng/mL (0.01-0.034)
[2023-10-25] MEDS: ENOXAPARIN 40 MG/0.4 ML SYRINGE SUBCUT (11:24)
--- NOTE | 2023-10-25 16:46 | CM.DANOTE ---
DCP Assessment Note Pt is a 78yo M here with PMH of Parkinson's disease with dementia chronic anxiety hypertension hyperlipidemia history of prostate cancer (H&P) was brought to the ED by friends after they found him down in the home for an unknown amount of time (8-10 hrs) PCP Dr Rikki Arce [facility] Per chart, pt unresponsive and made comfort care. Has had a significant decline in health over past few weeks. PROFESSOR OF APOLOGETICS met with friend/POA Fab in room. Fab brought copies of POA/Advance directive paperwork/POLST, CC Lavonne scanned into chart. Fab confirms pt lives alone in [place] and him and a few other friends have been support pt with his Parkinson's for a while now, bringing him food, checking in on him, helping manage bills, etc. Fab's spouse has dementia and cannot be left alone, but he has some PP CGs for her while he is here assisting with pt. Fab was reaching out to [facility] last week to set up hospice services for him. PROFESSOR OF APOLOGETICS gave Fab information on hiring CGs in the home vs dc to facility with comfort care. Fab plans to look into pt's finances and see what is affordable for pursing CGs in home vs will see what can be arranged with friends in the home. Per pt's advance directives, does not want IV fluids. Provider was notified. IV fluids stopped. Per Dr. Brandt, he thinks pt is likely imminent to pass here however would appreciate this CM team pursing back up plan of home with hospice. PROFESSOR OF APOLOGETICS faxed initial referral information to [facility]. Per Paulette, have been working with MARGE Sanon. Agreed to review. P: pt to pass here vs home with [facility], PP CGs, and friend support. If pt passes here, notify [facility] to cancel referral. CM team will continue to follow closely HETAL Perez Discharge Planning/Care Management CM Discharge Assessment Start: 10/25/23 16:45 Freq: Status: Active Protocol: Document 10/25/23 16:45 SL (Rec: 10/25/23 16:46 [id number]) Discharge Planning Assessment Assigned Camera Supervisor HETAL Estevez DPOA/Assigned Designee Name Fab POCornell/friend Contact Information [phone] Advance Directives? Yes History Provided By Friend Prior Living Arrangements House Household Members none Independent with ADL's No Is patient alert and oriented? No Discharge Plan Pt expected to in Hospital Additional Comment [facility] reviewing Whiteboard Updated in Patient Room with Yes name and ext. # of Camera Supervisor Review Status In Process Please Provide Date Initial DC 10/25/23 Assessment Was Performed Next Review Type Continued Stay Review
--- NOTE | 2023-10-25 17:44 | P.PN_ITS ---
Subjective Subjective Date Patient Seen: 10/25/23 Time Patient Seen: 12:50 Interval history: Patient lying in bed with intermittent movement/vocalizing but not oriented to environment. He is accompanied at bedside by good friend/POA Fab Liu. Fab expresses that Mr. Dan very clearly indicated a desire to avoid any life prolonging support including IV fluids, antibiotics, enteral feeds. He has signed healthcare directive paperwork indicating as much. There group of friends who regularly checked in on Mr. Dan had noted a fairly rapid decline in his health over the past few weeks, and we are working on initiating hospice care prior to his hospitalization. States that it would be ideal for him to discharge home with hospice if possible, though it is unclear if he would live long enough for this to happen given withdrawal of life-sustaining measures. Exam Vital Signs (past 8 hours): Oxygen Delivery Method Room Air Oxygen Flow Rate 0 Narrative Exam Narrative: General: Occasional grunts and movement in bed, does not appear to be in distress HEENT: NC, superficial bruising of forehead, moist mucous membranes CV: RRR, normal S1-S2, systolic murmur present Resp: CTAB, comfortable WOB Abd: Soft, NTND, +BS Ext: No edema Skin: Scattered superficial bruising and abrasions across chest and abdomen Neuro: Not alert or oriented to surrounding environment, responds to physical stimuli and moves extremities but non-communicative Objective Labs 10/25/23 08:17 10/25/23 08:17 Labs: Laboratory Results - last 24 hr 10/25/23 08:17 WBC 8.2 RBC 4.14 L Hgb 13.2 L Hct 38.2 L MCV 92.3 MCH 31.8 MCHC 34.5 RDW 12.0 Plt Count 158 Neut % (Auto) 77.3 H Lymph % (Auto) 17.1 L [place] % (Auto) 4.4 Eos % (Auto) 0.5 L Baso % (Auto) 0.7 Neut # (Auto) 6300 Lymph # (Auto) 1400 [place] # (Auto) 400 Eos # (Auto) 0 Baso # (Auto) 100 Sodium 135 L Potassium 3.7 Chloride 106 Carbon Dioxide 24 BUN 23 H Creatinine 0.94 Estimated GFR > 60 BUN/Creatinine Ratio 24.5 H Glucose 93 Calcium 8.5 Total Creatine Kinase 5301 H D Troponin I 0.254 H* [facility] Medical History (Updated 10/24/23 @ 12:53 by Thomas Bain MD) Elevated PSA (06/19/10) External hemorrhoids without mention of complication (01/18/03) Parkinson's disease (~05/2014) Peripheral neuropathy (~2011) Prostate cancer (06/2010) Hyperlipemia (Unknown) Hearing loss (Unknown) Surgical History Hx of tonsillectomy (Unknown) S/P nasal septoplasty (Unknown) Status post biopsy Family History Sister History of breast cancer Mother No problems noted. Social History household members: none Smoking Status: Never smoker second hand exposure: No alcohol intake: current substance use type: marijuana (smoke every couple days) Assessment & Plan Assessment and plan (1) Rhabdomyolysis: Qualifiers: Rhabdomyolysis type: traumatic Encounter type: initial encounter Qualified Code(s): T79.6XXA - Traumatic ischemia of muscle, initial encounter Status: Acute (2) Acute renal failure due to rhabdomyolysis: Status: Acute (3) Elevated troponin: Status: Acute (4) Need for comfort care: Status: Acute Assessment & Plan narrative: #rhabdomyolysis #JOHN #acute metabolic encephalopathy #parkinson's dementia Found down in home after unknown period of time by friend/caregiver prior to admission. Patient unresponsive to external interactions and unable to communicate at this time. CT head/neck on admission without evidence of acute injury or pathologic process. Baseline dementia from Parkinson's makes further evaluation of mental status difficult, though this is a marked difference from our previous interactions in clinic when he was at least able to speak and interact appropriately. CK continuing to rise, likely will worsen with discontinuation of IV fluids per patient wishes previously expressed in advanced directive paperwork. Renal function stable at this time, future labs discontinued to minimize unnecessary intervention. #elevated troponin Downtrending, likely related to poor renal function in context of rhabdomyolysis. No additional labs or intervention per patient desire. #comfort care Orders in place to minimize pain, anxiety, secretions, air hunger. All other medications and fluids stopped per wishes expressed in advanced care directive and reinforced by friend/HCPOA. Diet: NPO DVT ppx: Lovenox Code: DNR PCP: Rikki MDM: Anne Liu (HCPOA) Dispo: Comfort Care/Home with hospice if possible Time-Based Coding :: 40 minutes spent with patient and on the chart (including review of chart, obtaining history, exam, reviewing outside data, placing orders, documenting exam and treatment plan, and counseling patient) on 10/25/2023. PROFEE Charge codes Subsequent inpatient/observation care: 68191
[2023-10-25 19:00] VITALS: BP 148/48; PULSE 75; RESP 20; TEMP 36.3
[2023-10-26] MEDS: HYDROMORPHONE 0.5 MG INJ IV ×4 (01:36→08:23)
[2023-10-26] MEDS: LORazepam 2 MG/ML INJ 1 MG IV ×5 (01:56→21:33)
--- NOTE | 2023-10-26 05:56 | PC.NURSE ---
NOC: Throughout shift, pt was intermittently apneic or having gurgling respirations and sudden gasping for air with use of accessory muscles and retractions. Repositioned to Low Nicole's and administered tight schedule of PRN dilaudid and ativan. Attempted to lightly suction secretions but was unsuccessful (yankauer/suction tubing at bedside). Pt experienced occasional tremors or moaned/called out in sleep. Pt did not rouse to voice or touch. May benefit from morphine drip to help with air hunger. Care continues.
[2023-10-26 07:00] VITALS: BP 115/54; PULSE 61; RESP 16; TEMP 36.6; O2SAT 98
[2023-10-26] MEDS: ENOXAPARIN 40 MG/0.4 ML SYRINGE SUBCUT (08:23)
[2023-10-26] MEDS: CARBOXYMETHYLCELLULOSE DROPS 1 DROPS EYE-BOTH (10:41)
[2023-10-26] MEDS: MORPHINE 2 MG/ML INJ IV ×8 (10:41→22:44)
--- NOTE | 2023-10-26 12:29 | CM.DPNOTE ---
DCP Cont Spoke with TAYLOR MontalvoW who reports having been in touch with DPGHULAM Sanon today,cg list has been shared with Fab, and mica paster spot is being held for patient tomorrow afternoon if home plan works out. Discussed patient's current care needs with ELENO Queen; patient seems to be stable currently, has IV Dilaudid available which can be transitioned to sublingual vs patch if needed. Met w/Fab and two addtl friends of patient's to reviewed plan. Discussed in home care vs facility care. Fab is hopeful patient can come home although his friends have families and would not be able to stay with him 30/08. Strongly encouraged Fab and friends to place calls to cg agencies to research in home cg options, availability, pricing, etc then discuss feasibility of home plan, and be in touch with this RESTAURANT TEAM MEMBER with decision. Fab is able to access patient's bank account. Awaiting feedback from patient's DPOA Fab re discharge plan and feasibility. CM team following closely. CHARISMA
--- NOTE | 2023-10-26 13:10 | P.PN_ITS ---
Subjective Subjective Date Patient Seen: 10/26/23 Time Patient Seen: 13:10 Interval history: Patient resting in bed apparently comfortable. Unlabored respirations with occasional grunts but unresponsive to surrounding environment. Exam Vital Signs (past 8 hours): - 10/26/23 07:00 Temperature 97.9 F Pulse Rate 61 Respiratory Rate 16 Blood Pressure 115/54 L Pulse Oximetry 98 Oxygen Flow Rate 0 Oxygen Delivery Method Room Air Oxygen Flow Rate 0 Narrative Exam Narrative: General: Occasional grunts and movement in bed, does not appear to be in distress HEENT: NC, superficial bruising over left eye, moist mucous membranes CV: RRR, normal S1-S2, systolic murmur present Resp: CTAB, comfortable WOB Abd: Soft, NTND, +BS Ext: No edema Skin: Scattered superficial bruising and abrasions on right shoulder and abdomen Neuro: Not alert or oriented to surrounding environment, unresponsive to noxious stimuli on my exam Objective Labs 10/25/23 08:17 10/25/23 08:17 [facility] Medical History (Updated 10/24/23 @ 12:53 by Thomas Bain MD) Elevated PSA (06/19/10) External hemorrhoids without mention of complication (01/18/03) Parkinson's disease (~05/2014) Peripheral neuropathy (~2011) Prostate cancer (06/2010) Hyperlipemia (Unknown) Hearing loss (Unknown) Surgical History Hx of tonsillectomy (Unknown) S/P nasal septoplasty (Unknown) Status post biopsy Family History Sister History of breast cancer Mother No problems noted. Social History household members: none Smoking Status: Never smoker second hand exposure: No alcohol intake: current substance use type: marijuana (smoke every couple days) Assessment & Plan Assessment and plan (1) Rhabdomyolysis: Qualifiers: Encounter type: initial encounter Rhabdomyolysis type: traumatic Qualified Code(s): T79.6XXA - Traumatic ischemia of muscle, initial encounter Status: Acute (2) Acute renal failure due to rhabdomyolysis: Status: Acute (3) Elevated troponin: Status: Acute (4) Need for comfort care: Status: Acute Assessment & Plan narrative: #comfort care #rhabdomyolysis #JOHN #acute metabolic encephalopathy #parkinson's dementia Found down in home after unknown period of time by friend/caregiver prior to admission. Patient unresponsive to external interactions and unable to communicate at this time. CT head/neck on admission without evidence of acute injury or pathologic process. Baseline dementia from Parkinson's makes further evaluation of mental status difficult, though this is a marked difference from our previous interactions in clinic when he was at least able to speak and interact appropriately. Orders in place to minimize pain, anxiety, secretions, air hunger. All other medications and fluids stopped per wishes expressed in advanced care directive and reinforced by friend/HCPOA. Per , a equipment operator/laborer/supervisor spot is being held for patient tomorrow afternoon if home care plan can be worked out. Otherwise may require placement at SNF with hospice. #elevated troponin Downtrending, likely related to poor renal function in context of rhabdomyolysis. No additional labs or intervention per patient desire. Diet: NPO DVT ppx: Lovenox Code: DNR PCP: Rikki MDM: Anne Liu (HCPOA) Dispo: Comfort Care/Home with hospice if possible Time-Based Coding :: 20 minutes spent with patient and on the chart (including review of chart, obtaining history, exam, reviewing outside data, placing orders, documenting exam and treatment plan, and counseling patient) on 10/26/2023. PROFEE Charge codes Subsequent inpatient/observation care: 11080
[2023-10-26 19:00] VITALS: BP 139/63; PULSE 82; RESP 22; TEMP 36.6; O2SAT 92
[2023-10-27] MEDS: MORPHINE 2 MG/ML INJ IV ×8 (00:16→19:54)
[2023-10-27] MEDS: LORazepam 2 MG/ML INJ 1 MG IV ×2 (02:46→10:59)
[2023-10-27 07:00] VITALS: BP 101/44; PULSE 71; RESP 20; TEMP 37; O2SAT 95
--- NOTE | 2023-10-27 15:31 | P.PN_ITS ---
Subjective Subjective Date Patient Seen: 10/27/23 Time Patient Seen: 11:50 Interval history: Patient resting in bed, grossly unchanged from yesterday. Unresponsive to surrounding environment. Exam Vital Signs (past 8 hours): Oxygen Delivery Method Room Air Oxygen Flow Rate 0 Narrative Exam Narrative: General: Occasional grunts and movement in bed, does not appear to be in distress HEENT: NC, superficial bruising over left eye, moist mucous membranes CV: RRR, normal S1-S2, systolic murmur present Resp: Occasional inspiratory wheeze, comfortable WOB Abd: Soft, NTND, +BS Ext: No edema Skin: Scattered superficial bruising and abrasions on right shoulder and abdomen Neuro: Not alert or oriented to surrounding environment, unresponsive to noxious stimuli on my exam Objective Labs 10/25/23 08:17 10/25/23 08:17 [facility] Medical History (Updated 10/27/23 @ 15:33 by Thomas Brandt MD) Elevated PSA (06/19/10) External hemorrhoids without mention of complication (01/18/03) Parkinson's disease (~05/2014) Peripheral neuropathy (~2011) Prostate cancer (06/2010) Hyperlipemia (Unknown) Hearing loss (Unknown) Surgical History Hx of tonsillectomy (Unknown) S/P nasal septoplasty (Unknown) Status post biopsy Family History Sister History of breast cancer Mother No problems noted. Social History household members: none Smoking Status: Never smoker second hand exposure: No alcohol intake: current substance use type: marijuana (smoke every couple days) Assessment & Plan Assessment and plan (1) Need for comfort care: Status: Acute (2) Acute metabolic encephalopathy: Status: Acute (3) Rhabdomyolysis: Qualifiers: Rhabdomyolysis type: traumatic Encounter type: initial encounter Qualified Code(s): T79.6XXA - Traumatic ischemia of muscle, initial encounter Status: Acute (4) Parkinson disease: Qualifiers: Dyskinesia presence: without dyskinesia Fluctuating manifestations: u nspecified whether manifestations fluctuate Qualified Code(s): G20.A1 - Parkinson's disease without dyskinesia, without mention of fluctuations Status: Chronic (5) Elevated troponin: Status: Acute Assessment & Plan narrative: #comfort care #rhabdomyolysis #acute metabolic encephalopathy #JOHN #parkinson's dementia Found down in home after unknown period of time by friend/caregiver prior to admission. Patient unresponsive to external interactions and unable to communicate at this time. CT head/neck on admission without evidence of acute injury or pathologic process. Baseline dementia from Parkinson's makes further evaluation of mental status difficult, though this is a marked difference from our previous interactions in clinic when he was at least able to speak and interact appropriately. Orders in place to minimize pain, anxiety, secretions, air hunger. All other medications and fluids stopped per wishes expressed in advanced care directive and reinforced by friend/HCPOA. Per CM, potentially available tomorrow afternoon if home care plan can be worked out. Otherwise may require placement at SNF, which could happen before the weekend depending on the timing of caregiver decisions. #elevated troponin Downtrending, likely related to poor renal function in context of rhabdomyolysis. No additional labs or intervention per patient desire. Diet: NPO DVT ppx: Lovenox Code: DNR PCP: Rikki MDM: Anne Liu (HCPOA) Dispo: Comfort Care/Home with hospice if possible Time-Based Coding :: 30 minutes spent with patient and on the chart (including review of chart, obtaining history, exam, reviewing outside data, placing orders, documenting exam and treatment plan, and counseling patient) on 10/27/2023. PROFEE Charge codes Subsequent inpatient/observation care: [id number]
[2023-10-27] MEDS: MORPHINE 10 MG/0.5 ML ORAL SYRINGE SL ×4 (15:33→22:46)
--- NOTE | 2023-10-27 15:35 | CM.DPC ---
DCP Hospice Cont: Per MD, pt remains mostly unresponsive but still producing urine and on room air and not receiving morphine at this time but ordering sublingual morphine for comfort as pt has shown some signs of discomfort. Pt currently does not appear to be imminent in the next 48 hours at this time. NIC met bedside with pt, not able to participate in discussion, and his two friends/DPOAs Fab and Dakota. Both confirm they were overwhelmed with the PP CG list and had not placed calls yet. In discussion regarding pt's Goals of Care and his needs, decision made that best d/c plan to a facility with Hospice at this time. NIC discussed potential cost for a facility for room and board and POAs Dakota and Fab planned to go by pt's bank to determine his available assets. Preference is to remain in [place] if possible. SW made referral to [facility] and they currently do not have availability for PP/Hospice patient. NIC called [facility] and both Iram and Rachel out until tomorrow 10/27. NIC emailed and left msg for Irma to review first thing in the morning. NIC spoke to Essence at [facility] and currently the only available bed is on the rehab side and would be about $600 a day (more for that wing then their LTC side). Essence willing to review if [facility] cannot accept and Cookie agreeable to the cost of one month upfront and reimburse days not used. Called Paulette at [facility] and updated on plan of facility now with Hospice and they have availability tomorrow Tue if facility secured. HETAL Briggs
[2023-10-27] MEDS: LORazepam 2 MG/ML ORAL SOL 1 MG PO ×2 (16:42→22:11)
[2023-10-28] MEDS: MORPHINE 10 MG/0.5 ML ORAL SYRINGE SL ×3 (00:01→04:46)
[2023-10-28] MEDS: LORazepam 2 MG/ML ORAL SOL 1 MG PO (03:20)
[2023-10-28] MEDS: MORPHINE 2 MG/ML INJ IV ×2 (10:36→21:43)
--- NOTE | 2023-10-28 11:03 | PC.NURSE ---
Addendum entered by Martha Roberts R.N. 10/28/23 16:33: Pt status remains essentially unchanged. Possible D/C on Tuesday Reposition q 2 Stahl cath patent wendi urine, cath care done. Call light w/in reach. bed alarm on for pt safety. Continue w/ plqam of care. Original Note: Pt remains unresponsive. Respirations appear slightly labored, some moaning,ans grimising noted. Med w/ MS 2mg IVP as per orders w/good relief. IV site; SL intact/patent. Stahl cath patent clear wendi urine. Call light w/in reach, bed alarm on for pt safety.
--- NOTE | 2023-10-28 11:06 | CM.DPC ---
Addendum entered by HETAL Briggs 10/28/23 13:05: ADD: SW met bedside with MARGE Sanon and another friend of the pt's and they confirm that pt has plenty of financial assets in his bank to afford the care needed at d/c. SW updated that per their request regarding [facility], SW confirmed that they are currently full. Fab and friend called [facility] CG agency and confirmed that they can provide 24/7 care at d/c and provide the medications as directed by Hospice. Fab confirms that preference is home via BLS ambulance with [facility] and [facility]. NIC confirmed that [facility] can deliver DME tomorrow Sat 10/28 and have RN SOC Sun 10/29 between [id number]. BLS form completed and IMTIAZ Banerjee kindly set up [facility] transport for Sun 10/29 at 0900 to be home by 1000 for Hospice. POA and friends aware of possible chance that pt might prior to Sun but if pt remains then will d/c home Sun. BF Original Note: DCP Hospice Cont: NIC confirmed with [facility], [facility], and [facility] that they are all currently full and not able to accept patient for Comfort Care with Hospice at this time. [facility] might be able to accommodate if pt remains in the hospital through the weekend but not a guarantee. NIC called pt's POA friend Fab and updated on above and discussed possible option of other facilities in [facility] or [place] or even [facility] in [place]. MARGE states that the preference right now would be to attempt home with [facility] and [facility] over going to a facility outside of [place]. MARGE Sanon will go by the bank now before arriving bedside to see pt and continue ongoing discharge planning and requested assist of calling local PP CG agencies to determine availability. NIC called [facility] agency in [place] and provided brief update on needs and they feel they could accommodate 24/7 with Hospice quickly to meet pt's needs and requested POA call them once he arrives bedside to discuss further. NIC called Paulette at [facility] and updated and she confirms they could order DME for delivery by tomorrow Sat 10/28 but currently their next RN start of care isn't until 10/31 but she will check with their distribution center administrator to see if they can get an RN to do an extra SOC for maybe tomorrow Sat. Nicolasa Hester, [employer]
--- NOTE | 2023-10-28 12:37 | PM.PN.1 ---
Subjective Subjective Date Patient Seen: 10/28/23 Time Patient Seen: 12:37 Interval history: Unchanged level consciousness. Friend/POA present at bedside and indicates he, along with other friends of patient, have decided on 24 hour caregiver at home with hospice. They are working out details and hopeful for discharge this weekend. Exam Vital Signs (past 8 hours): Oxygen Delivery Method Room Air Oxygen Flow Rate 0 Narrative Exam Narrative: General: Occasional grunts and movement in bed, does not appear to be in distress HEENT: NC, superficial bruising over left eye, moist mucous membranes CV: RRR, normal S1-S2, systolic murmur present Resp: Occasional inspiratory wheeze, comfortable WOB Abd: Soft, NTND, +BS Ext: No edema Skin: Scattered superficial bruising and abrasions on right shoulder and abdomen Neuro: Not alert or oriented to surrounding environment, unresponsive to noxious stimuli on my exam Objective Labs 10/25/23 08:17 10/25/23 08:17 [facility] Medical History (Updated 10/27/23 @ 15:33 by Thomas Brandt MD) Elevated PSA (06/19/10) External hemorrhoids without mention of complication (01/18/03) Parkinson's disease (~05/2014) Peripheral neuropathy (~2011) Prostate cancer (06/2010) Hyperlipemia (Unknown) Hearing loss (Unknown) Surgical History Hx of tonsillectomy (Unknown) S/P nasal septoplasty (Unknown) Status post biopsy Family History Sister History of breast cancer Mother No problems noted. Social History household members: none Smoking Status: Never smoker second hand exposure: No alcohol intake: current substance use type: marijuana (smoke every couple days) Assessment & Plan Assessment and plan (1) Need for comfort care: Status: Acute (2) Acute metabolic encephalopathy: Status: Acute (3) Rhabdomyolysis: Qualifiers: Rhabdomyolysis type: traumatic Encounter type: initial encounter Qualified Code(s): T79.6XXA - Traumatic ischemia of muscle, initial encounter Status: Acute (4) Parkinson disease: Qualifiers: Dyskinesia presence: without dyskinesia Fluctuating manifestations: unspecified whether manifestations fluctuate Qualified Code(s): G20.A1 - Parkinson's disease without dyskinesia, without mention of fluctuations Status: Chronic (5) Elevated troponin: Status: Acute Assessment & Plan narrative: #comfort care #rhabdomyolysis #acute metabolic encephalopathy #JOHN #parkinson's dementia Found down in home after unknown period of time by friend/caregiver prior to admission. Patient unresponsive to external interactions and unable to communicate at this time. CT head/neck on admission without evidence of acute injury or pathologic process. Baseline dementia from Parkinson's makes further evaluation of mental status difficult, though this is a marked difference from our previous interactions in clinic when he was at least able to speak and interact appropriately. Orders in place to minimize pain, anxiety, secretions, air hunger. All other medications and fluids stopped per wishes expressed in advanced care directive and reinforced by friend/HCPOA. 24 hour caregiver service has been identified and plan is to discharge home on hospice sometime this weekend. #elevated troponin Downtrending, likely related to poor renal function in context of rhabdomyolysis. No additional labs or intervention per patient desire. Diet: NPO DVT ppx: Lovenox Code: DNR PCP: Rikki MDM: Anne Liu (HCPOA) Dispo: Home with hospice Time-Based Coding :: 25 minutes spent with patient and on the chart (including review of chart, obtaining history, exam, reviewing outside data, placing orders, documenting exam and treatment plan, and counseling patient) on 10/28/2023. PROFEE Charge codes Subsequent inpatient/observation care: 15002
--- NOTE | 2023-10-28 13:25 | CM.DPNOTE ---
Called for [facility] for transport on Tuesday, 10/29 per Nicolasa. I spoke to Brendan who confirmed that can transport patient to their home. Lavonne Bhatti, [facility] Assist.
[2023-10-28 16:05] VITALS: TEMP 37.1
[2023-10-28] MEDS: LORazepam 2 MG/ML INJ 1 MG IV (22:08)
[2023-10-29] MEDS: MORPHINE 2 MG/ML INJ IV ×2 (00:44→16:03)
[2023-10-29 02:37] VITALS: BP 106/74; PULSE 86; RESP 22; TEMP 37.2; O2SAT 96
[2023-10-29] MEDS: LORazepam 2 MG/ML INJ 1 MG IV (03:07)
[2023-10-29 07:00] VITALS: BP 140/61; PULSE 71; RESP 15; TEMP 36.6; O2SAT 90
--- NOTE | 2023-10-29 12:40 | P.PN_ITS ---
Subjective Subjective Date Patient Seen: 10/29/23 Time Patient Seen: 12:40 Interval history: Patient seen in follow-up rhabdomyolysis Parkinson's dementia elevated troponin. Patient is sleeping today. Minimally arousable. Does not appear to be any pain. Exam Vital Signs (past 8 hours): - 10/29/23 07:00 Temperature 97.8 F Pulse Rate 71 Respiratory Rate 15 Blood Pressure 140/61 Pulse Oximetry 90 L Oxygen Flow Rate 0 Oxygen Delivery Method Room Air Oxygen Flow Rate 0 Narrative Exam Narrative: Sleeping male no acute distress Lungs are clear. Cardiac. Regular rate and rhythm Unchanged murmur Objective Labs 10/25/23 08:17 10/25/23 08:17 [facility] Medical History (Updated 10/27/23 @ 15:33 by Thomas Brandt MD) Elevated PSA (06/19/10) External hemorrhoids without mention of complication (01/18/03) Parkinson's disease (~05/2014) Peripheral neuropathy (~2011) Prostate cancer (06/2010) Hyperlipemia (Unknown) Hearing loss (Unknown) Surgical History Hx of tonsillectomy (Unknown) S/P nasal septoplasty (Unknown) Status post biopsy Family History Sister History of breast cancer Mother No problems noted. Social History household members: none Smoking Status: Never smoker second hand exposure: No alcohol intake: current substance use type: marijuana (smoke every couple days) Assessment & Plan Assessment & Plan narrative: Parkinson's dementia with multiple complications. Worsening. End-stage. Apparently decision has been made for comfort longterm was hospice. Seems comfortable at this time. No significant need for change. Plan for discharge home on hospice tomorrow. No change in treatment at this time. Time-Based Coding :: [TOTAL MINUTES] spent with patient and on the chart (including review of chart, obtaining history, exam, reviewing outside data, placing orders, documenting exam and treatment plan, and counseling patient) on [DATE].
[2023-10-29 19:00] VITALS: BP 87/36; PULSE 74; RESP 22; TEMP 36.9; O2SAT 92
[2023-10-30] MEDS: LORazepam 2 MG/ML INJ 1 MG IV ×2 (04:18→08:46)
[2023-10-30 07:00] VITALS: BP 180/102; PULSE 90; RESP 24; TEMP 37.1; O2SAT 92
--- NOTE | 2023-10-30 08:50 | PM.DS.1 ---
History of Present Illness History of Present Illness Date Patient Seen: 10/30/23 Time Patient Seen: 08:50 Date of Onset of Symptoms: 10/16/23 Chief complaint: found down 8-10 hrs Narrative: Farzad is a 78-year-old gentleman with a past medical history of Parkinson's disease with dementia chronic anxiety hypertension hyperlipidemia history of prostate cancer. Patient lives at home by himself. He has a [id number]. Patient was brought into the emergency department for evaluation after being found down. Patient's friend who checks on him daily states that they checked on him he was face down on the floor. Patient was really not responsive at that time not communicating well and was brought to the emergency department. During emergency department evaluation laboratory tests were done CT head and neck was done he was moving extremities but not really alert or confused. Patient is unable to provide a history other than response to stimuli. Care wishes were talked with his [id number] in the emergency department and also by me this afternoon. Based on patient's previously wishes of significant Parkinson's disease. And memory loss. Patient is a do not resuscitate and comfort only in fact the [id number] and his friends were working on getting hospice out to the house this last week. As he has had a significant decline in overall health in the last 3 weeks and needing more and more caregiving support. Discharge Providers Provider Date of admission: 10/24/23 10:55 Discharge Date: 10/30/23 Primary care physician: Thomas Brandt MD Consults: 10/24/23 09:08 Consult to [facility] [place] - Digital Publishing Specialist Stat Comment: Digital Publishing Specialist Consult needed for:: Other reason (Comment) Comment: comfort care/hospice 10/24/23 11:02 Consult to Discharge Planning Routine Comment: Consult to Discharge Planning Routine Comment: 10/24/23 11:03 Consult to Hospice Referral Urgent Comment: 10/26/23 09:06 Consult to Discharge Planning Routine Comment: Discharge provider: Sanjay Faustin MD Summary Hospital Course Discharge Diagnosis: Rhabdomyolysis Acute metabolic encephalopathy Parkinson's related dementia Parkinson's Hypertension Hyperlipidemia Hospital Course: Patient was found down after 8-10 hours and found to be in rhabdomyolysis. Friend and POA was present at time. At time of admission patient was much worse with his Parkinson's related dementia and acute metabolic encephalopathy. Given the significant change analyst the last 2-3 weeks and multiple discussions with the POA over the 1st 24 hours it was clear that Farzad did not want significant intervention and that his decline in health would have been something he would have not wanted further interventions with. Labs were discontinued and he was switched to comfort care. Social Service set up hospice and it is believe this will be part of his wishes. He was taking care of and a comfort measures until hospice was set up at home and was discharged. Exam Vital Signs (past 8 hours): Oxygen Delivery Method Room Air Oxygen Flow Rate 0 Narrative Exam Narrative: Minimally responsive male in no acute distress Lungs are clear heart is regular rate and rhythm neurologic exam is nonfocal Objective Labs 10/25/23 08:17 10/25/23 08:17 [facility] Medical History (Updated 10/27/23 @ 15:33 by Thomas Brandt MD) Elevated PSA (06/19/10) External hemorrhoids without mention of complication (01/18/03) Parkinson's disease (~05/2014) Peripheral neuropathy (~2011) Prostate cancer (06/2010) Hyperlipemia (Unknown) Hearing loss (Unknown) Surgical History Hx of tonsillectomy (Unknown) S/P nasal septoplasty (Unknown) Status post biopsy Family History Sister History of breast cancer Mother No problems noted. Social History household members: none Smoking Status: Never smoker second hand exposure: No alcohol intake: current substance use type: marijuana (smoke every couple days) Discharge Assessment & Plan Assessment and Plan Assessment: Comfort care end of life care stable Plan of Treatment: Discharge home to hospice Discharge Plan Discharge Plan Patient Disposition: Home Discharge orders & Medications Prescriptions: Continued carbidopa-levodopa [Sinemet] 25-100 mg tablet 1 tab PO TID Qty: 90 5RF Patient Comments: SOURCE: EXTERNAL MED HISTORY (PREETI) lisinopril 10 mg tablet 10 mg PO DAILY Qty: 30 5RF Patient Comments: SOURCE: EXTERNAL MED HISTORY (PREETI) rasagiline 1 mg tablet 1 mg PO DAILY Qty: 30 5RF simvastatin 20 mg tablet 20 mg PO ONCE PM Qty: 90 3RF Patient Comments: SOURCE: EXTERNAL MED HISTORY (PREETI) Ensure Liquid 1 ea PO BID Qty: 87840 11RF Rx Instructions: 1 bottle twice daily every day to increase calories with weight loss history (total 60 bottles monthly) Follow up/Referrals: Thomas Brandt MD [Primary Care Provider] - 2 Weeks Discharge Health Status Multidrug resistant organism: No MDRO Diet/Activity/Treatments Diet: Diet as Tolerated Visit Report/Discharge Packet Stand Alone Forms: Patient Portal/API, Stroke Signs & Symptoms Discharge Data Primary Care Provider: Thomas Brandt
[2023-10-30] MEDS: MORPHINE 2 MG/ML INJ IV (08:54)
--- NOTE | 2023-10-30 09:48 | PC.NURSE ---
Addendum entered by Brianne Bahena R.N. 12/15/23 15:00: Very late entry note RE: I sent a note regarding ativan waste to pharmacy after discussing what happened to my supervisor cooler service Gladys Thurman. it was written that 1mg of waste of ativan was not showing waste on [facility]. I threw the med vial with the 1mg ativan in the sharpes. Lore Lomas RN. was there. Original Note: 0845pt repositioned for comfort and became restless moaning and coughing medicated with ativan and morphine 2mg for comfort. 0945 [facility] here to take patient home for hospice care., pt relaxed no moaning
== END 2023-10-30 09:50 | disposition home or self-care (01) | DRG 564 ==
LOC: ED 10:33 → AC 10:56
PROVIDERS: Admitting Provider Family Medicine; Emergency Provider Student in an Organized Health Care Education/Training Program; Family Provider Psychiatry & Neurology Neurology; PCP Family Medicine; Referring Provider Student in an Organized Health Care Education/Training Program; Visit Provider Family Medicine
DX: T79.6XXA Traumatic ischemia of muscle, initial encounter (principal); G93.41 Metabolic encephalopathy; N17.9 Acute kidney failure, unspecified; R40.4 Transient alteration of awareness; G20.A1 Parkinson's disease without dyskinesia, without mention of fluctuations; F02.80 Dementia in other diseases classified elsewhere, unspecified severity, without behavioral disturbance, psychotic disturbance, mood disturbance, and anxiety; I10 Essential (primary) hypertension; E78.5 Hyperlipidemia, unspecified; R79.89 Other specified abnormal findings of blood chemistry; W19.XXXA Unspecified fall, initial encounter; Z51.5 Encounter for palliative care; Z66 Do not resuscitate; Z85.46 Personal history of malignant neoplasm of prostate
CPT/HCPCS: 0241U; 36415; 70450; 71045; 72125; 80048; 80053; 81001; 82550; 83605; 83735; 83880; 84145; 84484; 85025; 85610; 85730; 93005; 96361; 96374; 99284; 99285; A9270; J1170; J1650; J2060; J2270; J7050